=== PATIENT | female | born 1955 | race Caucasian/White ===

== ENCOUNTER 2017-09-03 02:56 | Emergency (ER) | payer MEDICARE, MEDICAID ==
[~2017-09-03] VITALS: Ht 167.6 cm; Wt 63.5 kg
[~2017-09-03 02:56] MED LIST: ATIVAN1 MG ORAL; BUTALB-ACETAMI1 EAC3 PO; TENORMIN25 MG ORAL
[2017-09-03 03:18] LABS: BILIRUBIN, URINE NEGATIVE (NEGATIVE); COLOR,URINE PALE YELLOW; GLUCOSE, URINE (UA) NEGATIVE (NEGATIVE); KETONES,URINE NEGATIVE (NEGATIVE); NITRITE,URINE NEGATIVE (NEGATIVE); PH,URINE 6 (4.5-8.0); PROTEIN,URINE NEGATIVE (NEGATIVE); UROBILINOGEN,URINE NORMAL MG/DL (0.0-1.0)
--- NOTE | 2017-09-03 03:23 | Emergency Room Report ---
History of Present Illness General Chief Complaint: Pelvic Pain Source: Patient, Medical Record Present Illness HPI 61-year-old female, history of ovarian cyst removal 15 years ago, as well as cervix surgery 15 years ago, presenting with abdominal pain for the last 5 days. Points to her bilateral lower abdomen for pain. States that it's constant. Has still been able to eat and drink. No nausea vomiting or diarrhea. Denies any dysuria or hematuria. States that she went to [facility] who performed a urine test which was negative and sent her home Allergies: Coded Allergies: NIACIN (Verified Allergy, Unknown, 09/03/17) Patient History Past Medical History: see triage record Past Surgical History: none Pertinent Family History: none Now: No Reviewed Nursing Documentation: PMH: Agreed; PSxH: Agreed Nursing Documentation-PMH Hx Hypertension: Yes Hx Pacemaker: No - THYROID NODULE Review of Systems All Other Systems: negative except mentioned in HPI Physical Exam Vital Signs Date Time Temp Pulse Resp B/P (MAP) Pulse Ox O2 Delivery O2 Flow Rate FiO2 09/03/17 03:08 98.2 92 14 117/77 96 Room Air 98.2 Sp02 EP Interpretation: reviewed, normal General Appearance: alert, GCS 15, non-toxic, mild distress Head: normocephalic, atraumatic Eyes: bilateral eye normal inspection, bilateral eye PERRL, bilateral eye EOMI ENT: normal ENT inspection, normal pharynx, normal voice, moist mucus membranes Neck: normal inspection, full range of motion, supple Respiratory: normal inspection, lungs clear, normal breath sounds, no respiratory distress, no retraction, no wheezing, speaking full sentences, chest symmetrical Cardiovascular #1: normal inspection, regular rate, rhythm, no edema, normal capillary refill Cardiovascular #2: 2+ radial (R), 2+ radial (L) Gastrointestinal: other - Bilateral lower abdominal mild tenderness, no guarding no rigidity no rebound Musculoskeletal: normal inspection, back normal, normal range of motion, non- tender Neurologic: normal inspection, alert, oriented x3, responsive, motor strength/ tone normal, sensory intact, normal gait, speech normal Psychiatric: normal inspection, judgement/insight normal, memory normal Skin: normal inspection, normal color, no rash, warm/dry, well hydrated, normal turgor Medical Decision Making Diagnostic Impression: Primary Impression: UTI (urinary tract infection) ER Course 61-year-old female with abdominal pain Differential Diagnosis: Gastritis, gastroenteritis, cholecystitis, appendicitis, diverticulitis, SBO, UTI/pyelo Plan: Basic labs, ua pain control, IVF CT abdopelvis ER course: Patient has remained stable during ED stay. Pain improved. Repeat abdominal exam is nontender. pt has UTI incidental finding on adrenal gland disucssed with pt to follow up with pcp Disposition: Patient is to be discharged to home with abx Patient is instructed to follow up with their primary care doctor within 5 days. Strict return precautions discussed with patient such as fever, chills, worsening/severe abdominal pain, nausea, vomiting, black or bloody stools, which may indicate severe illness. Patient verbalizes understanding and agrees with plan. Please note that this Emergency Department Report was dictated using [employer] medicine teacher technology software, occasionally this can lead to erroneous entry secondary to interpretation by the dictation equipment Laboratory Tests Test 09/03/17 03:00 09/03/17 03:51 Urine Color Pale yellow Urine Appearance Slightly cloudy Urine pH 6 (4.5-8.0) Urine Specific [place] 1.020 (1.005-1.035) Urine Protein Negative (NEGATIVE) Urine Glucose (UA) Negative (NEGATIVE) Urine Ketones Negative (NEGATIVE) Urine Occult Blood 3+ (NEGATIVE) H Urine Nitrite Negative (NEGATIVE) Urine Bilirubin Negative (NEGATIVE) Urine Urobilinogen Normal MG/DL (0.0-1.0) Urine Leukocyte Esterase 2+ (NEGATIVE) H Urine RBC 20-30 /HPF (0 - 2) H Urine WBC 30-40 /HPF (0 - 2) H Urine Squamous Epithelial Cells Many /LPF (NONE/OCC) H Urine Bacteria Many /HPF (NONE) H White Blood Count 8.8 K/UL (4.8-10.8) Red Blood Count 4.66 M/UL (4.20-5.40) Hemoglobin 14.8 G/DL (12.0-16.0) Hematocrit 42.4 % (37.0-47.0) Mean Corpuscular Volume 91 FL (80-99) Mean Corpuscular Hemoglobin 31.7 PG (27.0-31.0) H Mean Corpuscular Hemoglobin Concent 34.8 G/DL (32.0-36.0) Red Cell Distribution Width 11.0 % (11.6-14.8) L Platelet Count 177 K/UL (150-450) Mean Platelet Volume 9.4 FL (6.5-10.1) Neutrophils (%) (Auto) 72.3 % (45.0-75.0) Lymphocytes (%) (Auto) 14.9 % (20.0-45.0) L Monocytes (%) (Auto) 8.0 % (1.0-10.0) Eosinophils (%) (Auto) 3.2 % (0.0-3.0) H Basophils (%) (Auto) 1.7 % (0.0-2.0) Sodium Level 139 MMOL/L (136-145) Potassium Level 5.2 MMOL/L (3.5-5.1) H Chloride Level 107 MMOL/L (98-107) Carbon Dioxide Level 26 MMOL/L (21-32) Anion Gap 6 mmol/L (5-15) Blood Urea Nitrogen 23 mg/dL (7-18) H Creatinine 0.9 MG/DL (0.55-1.30) Estimate Glomerular Filtration Rate > 60 mL/min (>60) Glucose Level 108 MG/DL (74-106) H Calcium Level 8.8 MG/DL (8.5-10.1) Total Bilirubin 0.3 MG/DL (0.2-1.0) Aspartate Amino Transferase (AST) 34 U/L (15-37) Alanine Aminotransferase (ALT) 24 U/L (12-78) Alkaline Phosphatase 98 U/L (46-116) Total Protein 6.6 G/DL (6.4-8.2) Albumin 3.4 G/DL (3.4-5.0) Globulin 3.2 g/dL Albumin/Globulin Ratio 1.1 (1.0-2.7) Lipase 133 U/L (73-393) CT/MRI/US Diagnostic Results CT/MRI/US Diagnostic Results : Imaging Test Ordered: CT abdo pelvis Impression IMPRESSION: Fluid/gas present throughout nondistended small bowel loops without evidence of obstruction. Findings may be within the spectrum of normal or possibly reflective of mild enteritis in the appropriate clinical setting. Mild heterogeneity of renal parenchymal enhancement bilaterally likely related to phase of imaging. If there is concern for pyelonephritis, recommend correlation with urinalysis. 8 mm indeterminate left adrenal nodule, most commonly adenoma in patient without history of prior malignancy. Consider dedicated adrenal protocol CT or MRI for definitive characterization as clinically indicated. Additional findings as above. Last Vital Signs Date Time Temp Pulse Resp B/P (MAP) Pulse Ox O2 Delivery O2 Flow Rate FiO2 09/03/17 03:08 98.2 92 14 117/77 96 Room Air 98.2 Disposition: HOME, SELF-CARE Condition: Improved Scripts Cephalexin* (KEFLEX*) 500 Mg Capsule 500 MG ORAL Q6H, #28 CAP 0 Refills Prov: Luis De León M.D. 09/03/17 Referrals: NOT CHOSEN PIPER/,REFERRING (PCP) Luis De León M.D. Sep 03, 2017 03:23
[2017-09-03] MEDS ORDERED: Ketorolac 30mg Inj IV ONE (03:30)
[2017-09-03 03:36] LABS: APPEARANCE,URINE SLIGHTLY CLOUDY; LEUKOCYTE ESTERASE ,URINE 2+ (NEGATIVE)
[2017-09-03 04:01] LABS: BASOPHILS % (AUTO) 1.7 % (0.0-2.0); EOSINOPHILS % (AUTO) 3.2 % (0.0-3.0); HEMATOCRIT 42.4 % (37.0-47.0); HEMOGLOBIN 14.8 G/DL (12.0-16.0); LYMPHOCYTES % (AUTO) 14.9 % (20.0-45.0); MEAN CORPUSCULAR VOLUME 91 FL (80-99); NEUTROPHILS % (AUTO) 72.3 % (45.0-75.0); PLATELET COUNT 177 K/UL (150-450); RED BLOOD COUNT 4.66 M/UL (4.20-5.40); WHITE BLOOD COUNT 8.8 K/UL (4.8-10.8)
[2017-09-03 04:08] LABS: ANION GAP 6 mmol/L (5-15); BLOOD UREA NITROGEN 23 mg/dL (7-18); CALCIUM 8.8 MG/DL (8.5-10.1); CARBON DIOXIDE 26 MMOL/L (21-32); CHLORIDE 107 MMOL/L (98-107); CREATININE 0.9 MG/DL (0.55-1.30); POTASSIUM 5.2 MMOL/L (3.5-5.1); SODIUM 139 MMOL/L (136-145)
[2017-09-03 04:12] LABS: ALANINE AMINOTRANSFERASE 24 U/L (12-78); ALBUMIN 3.4 G/DL (3.4-5.0); ALBUMIN/GLOBULIN RATIO 1.1 (1.0-2.7); ALKALINE PHOSPHATASE 98 U/L (46-116); ASPARTATE AMINO TRANSFERASE 34 U/L (15-37); BILIRUBIN,TOTAL 0.3 MG/DL (0.2-1.0)
[2017-09-03] MEDS ORDERED: cefTRIAXone 1 GM in NS 55 ML IVPB ONE (04:30)
[2017-09-03] MEDS ORDERED: KEFLEX500 MG ORAL (04:43)
[2017-09-03] MEDS ORDERED: Phenazopyridine 200mg tab ORAL ONE (05:00)
[2017-09-03] MEDS ORDERED: Cephalexin 500mg cap ORAL ONE (05:00)
[2017-09-03 06:25] VITALS: BP 112/76
[2017-09-03] MEDS ORDERED: Piperacillin/Tazobactam 3.375 GM in NS 55 ML IVPB ONE (08:00)
--- NOTE | 2017-09-03 10:25 | Diagnostic Imaging Report ---
Indication: Abdominal pain Technique: CT of the abdomen and pelvis utilizing automated exposure control with intravenous contrast. Venous scanning performed. CT dose: Total DLP 685.85 mGycm; CTDI vol 13.01 mGy Comparison: None Findings: Dependent atelectasis noted in the lung bases. Heart size within normal limits. No pericardial effusion. No focal liver lesion appreciated on this single phase exam. Hepatic veins and portal veins appear patent. Gallbladder is contracted, limiting its evaluation but it is grossly unremarkable in appearance. Spleen and pancreas grossly unremarkable. The is a 8 mm indeterminate left adrenal nodule. Kidneys enhance symmetrically. There is mild heterogeneity of enhancement which is likely related to phase of imaging. There is no urinary tract stone or hydronephrosis bilaterally. Bladder and uterus grossly unremarkable. No free intraperitoneal air or fluid. No evidence of bowel obstruction. Appendix is not definitively visualized but there are no focal inflammatory changes in the right lower quadrant to suggest acute appendicitis. No appreciable focal bowel wall thickening is seen however evaluation limited without the use of oral contrast. Underdistention of the stomach limits evaluation for gastric wall thickening, which cannot entirely be excluded. Fluid/gas present throughout the nondistended small bowel loops could be within the spectrum of normal for represent mild enteritis in the appropriate clinical setting. A small fat-containing umbilical hernia. There is no pathologically enlarged lymphadenopathy. Abdominal aorta is normal in caliber. There are degenerative changes of the spine. No acute osseous abnormality seen. IMPRESSION: Fluid/gas present throughout nondistended small bowel loops without evidence of obstruction. Findings may be within the spectrum of normal or possibly reflective of mild enteritis in the appropriate clinical setting. Mild heterogeneity of renal parenchymal enhancement bilaterally likely related to phase of imaging. If there is concern for pyelonephritis, recommend correlation with urinalysis. 8 mm indeterminate left adrenal nodule, most commonly adenoma in patient without history of prior malignancy. Consider dedicated adrenal protocol CT or MRI for definitive characterization as clinically indicated. Additional findings as above. This corresponds with the statrad preliminary report.. The CT scanner at [facility] is accredited by the [employer] and the scans are performed using protocols designed to limit radiation exposure to as low as reasonably achievable to attain images of sufficient resolution adequate for diagnostic evaluation.
== END 2017-09-03 06:25 | disposition home or self-care (01) ==
LOC: EDBD 02:56 → EMR 03:08
DX: N39.0 Urinary tract infection, site not specified (principal); I10 Essential (primary) hypertension
CPT/HCPCS: 36415; 74177; 80053; 81003; 83690; 85025; 87086; 96374; 99284; J1885; Q9967

== ENCOUNTER 2017-09-24 11:37 | Inpatient (IN) | payer MEDICARE, MEDICAID ==
[~2017-09-24] VITALS: Ht 167.6 cm; Wt 68.0 kg
[~2017-09-24 11:37] MED LIST changes: +KEFLEX500 MG ORAL
[2017-09-24 11:40] VITALS: BP 163/96
[2017-09-24] MEDS ORDERED: HYDROmorphone 1mg/ml Carpuject IVP ONE (11:45)
--- NOTE | 2017-09-24 11:52 | Emergency Room Report ---
History of Present Illness General Chief Complaint: Back Pain-No Injury Source: Patient, EMS Present Illness HPI Patient presents with complaints of right-sided flank pain upper back pain started few hours ago She was here recently with UTI/pyelonephritis At that time CT imaging was negative [facility] Denies any vomiting denies any diarrhea denies any chest pain or shortness of breath pain is 10 out of 10 Flank region also complains of burning with urination Allergies: Coded Allergies: SULFA (SULFONAMIDE ANTIBIOTICS) (Verified Allergy, Intermediate, 09/24/17) NIACIN (Verified Allergy, Unknown, 09/24/17) Patient History Past Medical History: see triage record Pertinent Family History: none Reviewed Nursing Documentation: PMH: Agreed; PSxH: Agreed Nursing Documentation-PMH Past Medical History: No History, Except For Hx Cardiac Problems: Yes Hx Hypertension: Yes Hx Pacemaker: No - THYROID NODULE Hx Cancer: Yes Hx Gastrointestinal Problems: No Hx Neurological Problems: No Review of Systems All Other Systems: negative except mentioned in HPI Physical Exam Vital Signs Date Time Temp Pulse Resp B/P (MAP) Pulse Ox O2 Delivery O2 Flow Rate FiO2 09/24/17 11:30 98.2 88 16 163/96 100 Room Air 98.2 Sp02 EP Interpretation: reviewed, normal General Appearance: mild distress - Uncomfortable in pain Head: normocephalic, atraumatic Eyes: bilateral eye PERRL, bilateral eye EOMI ENT: normal pharynx Neck: full range of motion, supple Respiratory: lungs clear, normal breath sounds Cardiovascular #1: regular rate, rhythm Gastrointestinal: non tender Genitourinary: CVA tenderness (R) Musculoskeletal: normal inspection, back normal Neurologic: alert, oriented x3, responsive Skin: normal color, no rash Lymphatic: no adenopathy Medical Decision Making Diagnostic Impression: Primary Impression: Rhabdomyolysis Additional Impression: Pyelonephritis ER Course Multiple differentials considered Patient is complex requiring extensive blood work and IV hydration Patient has CT imaging from recent visit and this was not repeated Patient's total CK is elevated Urine sample appears to be clearing However potentially not fully treated with the antibiotics with the flank pain consideration for pyelonephritis is high And patient admitted for further care Labs Test 09/24/17 11:50 09/24/17 16:40 09/25/17 07:40 White Blood Count 8.7 K/UL (4.8-10.8) 8.1 K/UL (4.8-10.8) Red Blood Count 5.16 M/UL (4.20-5.40) 4.09 M/UL (4.20-5.40) Hemoglobin 16.3 G/DL (12.0-16.0) 13.5 G/DL (12.0-16.0) Hematocrit 48.0 % (37.0-47.0) 38.4 % (37.0-47.0) Mean Corpuscular Volume 93 FL (80-99) 94 FL (80-99) Mean Corpuscular Hemoglobin 31.6 PG (27.0-31.0) 33.0 PG (27.0-31.0) Mean Corpuscular Hemoglobin Concent 34.0 G/DL (32.0-36.0) 35.1 G/DL (32.0-36.0) Red Cell Distribution Width 11.5 % (11.6-14.8) 11.7 % (11.6-14.8) Platelet Count 226 K/UL (150-450) 156 K/UL (150-450) Mean Platelet Volume 7.8 FL (6.5-10.1) 8.5 FL (6.5-10.1) Neutrophils (%) (Auto) 57.9 % (45.0-75.0) 65.1 % (45.0-75.0) Lymphocytes (%) (Auto) 29.2 % (20.0-45.0) 22.8 % (20.0-45.0) Monocytes (%) (Auto) 7.5 % (1.0-10.0) 7.1 % (1.0-10.0) Eosinophils (%) (Auto) 4.0 % (0.0-3.0) 3.8 % (0.0-3.0) Basophils (%) (Auto) 1.5 % (0.0-2.0) 1.3 % (0.0-2.0) Urine Color Pale yellow Urine Appearance Clear Urine pH 5 (4.5-8.0) Urine Specific [place] 1.020 (1.005-1.035) Urine Protein Negative (NEGATIVE) Urine Glucose (UA) Negative (NEGATIVE) Urine Ketones Negative (NEGATIVE) Urine Occult Blood 2+ (NEGATIVE) Urine Nitrite Negative (NEGATIVE) Urine Bilirubin Negative (NEGATIVE) Urine Urobilinogen Normal MG/DL (0.0-1.0) Urine Leukocyte Esterase 1+ (NEGATIVE) Urine RBC 2-4 /HPF (0 - 2) Urine WBC 2-4 /HPF (0 - 2) Urine Squamous Epithelial Cells Few /LPF (NONE/OCC) Urine Bacteria Occasional /HPF (NONE) Urine Mucus Few /LPF (NONE/OCC) Sodium Level 142 MMOL/L (136-145) 141 MMOL/L (136-145) Potassium Level 3.7 MMOL/L (3.5-5.1) 4.1 MMOL/L (3.5-5.1) Chloride Level 106 MMOL/L (98-107) 107 MMOL/L (98-107) Carbon Dioxide Level 26 MMOL/L (21-32) 24 MMOL/L (21-32) Anion Gap 11 mmol/L (5-15) 10 mmol/L (5-15) Blood Urea Nitrogen 15 mg/dL (7-18) 11 mg/dL (7-18) Creatinine 1.0 MG/DL (0.55-1.30) 1.0 MG/DL (0.55-1.30) Estimat Glomerular Filtration Rate 56.8 mL/min (>60) 56.8 mL/min (>60) Glucose Level 88 MG/DL (74-106) 132 MG/DL (74-106) Lactic Acid Level 2.40 mmol/L (0.66-2.22) 0.80 mmol/L (0.66-2.22) Calcium Level 9.6 MG/DL (8.5-10.1) 8.8 MG/DL (8.5-10.1) Total Bilirubin 0.5 MG/DL (0.2-1.0) 0.5 MG/DL (0.2-1.0) Aspartate Amino Transf (AST/SGOT) 41 U/L (15-37) 37 U/L (15-37) Alanine Aminotransferase (ALT/SGPT) 25 U/L (12-78) 23 U/L (12-78) Alkaline Phosphatase 88 U/L (46-116) 66 U/L (46-116) Total Creatine Kinase 1770 U/L (26-308) 1159 U/L (26-308) Creatine Kinase MB 9.7 NG/ML (0.0-3.6) Creatine Kinase MB Relative Index 0.5 Total Protein 7.7 G/DL (6.4-8.2) 6.2 G/DL (6.4-8.2) Albumin 4.4 G/DL (3.4-5.0) 3.3 G/DL (3.4-5.0) Globulin 3.3 g/dL 2.9 g/dL Albumin/Globulin Ratio 1.3 (1.0-2.7) 1.1 (1.0-2.7) Lipase 135 U/L (73-393) Urine Opiates Screen Negative (NEGATIVE) Urine Barbiturates Screen Positive (NEGATIVE) Phencyclidine (PCP) Screen Negative (NEGATIVE) Urine Amphetamines Screen Negative (NEGATIVE) Urine Benzodiazepines Screen Negative (NEGATIVE) Urine Cocaine Screen Negative (NEGATIVE) Urine Marijuana (THC) Screen Negative (NEGATIVE) Thyroid Stimulating Hormone (TSH) 2.450 uiU/mL (0.358-3.740) Chest X-Ray Diagnostic Results Chest X-Ray Diagnostic Results : Chest X-Ray Ordered: Yes # of Views/Limited/Complete: 1 View Indication: Chest Pain EP Interpretation: Yes Interpretation: no consolidation, no effusion, no pneumothorax Impression: No acute disease Electronically Signed by: Richie Jain DO Last Vital Signs Date Time Temp Pulse Resp B/P (MAP) Pulse Ox O2 Delivery O2 Flow Rate FiO2 09/24/17 11:30 98.2 88 16 163/96 100 Room Air 98.2 Status: improved Disposition: ADMITTED INPATIENT Condition: Serious Richie Jain DO Sep 24, 2017 11:52
[2017-09-24 12:07] LABS: BASOPHILS % (AUTO) 1.5 % (0.0-2.0); HEMOGLOBIN 16.3 G/DL (12.0-16.0); LYMPHOCYTES % (AUTO) 29.2 % (20.0-45.0); MEAN CORPUSCULAR VOLUME 93 FL (80-99); MONOCYTES % (AUTO) 7.5 % (1.0-10.0); NEUTROPHILS % (AUTO) 57.9 % (45.0-75.0); PLATELET COUNT 226 K/UL (150-450); RED BLOOD COUNT 5.16 M/UL (4.20-5.40); RED CELL DISTRIBUTION WIDTH 11.5 % (11.6-14.8); WHITE BLOOD COUNT 8.7 K/UL (4.8-10.8)
[2017-09-24 12:08] LABS: APPEARANCE,URINE CLEAR; BILIRUBIN, URINE NEGATIVE (NEGATIVE); COLOR,URINE PALE YELLOW; GLUCOSE, URINE (UA) NEGATIVE (NEGATIVE); KETONES,URINE NEGATIVE (NEGATIVE); LEUKOCYTE ESTERASE ,URINE 1+ (NEGATIVE); NITRITE,URINE NEGATIVE (NEGATIVE); PH,URINE 5 (4.5-8.0); PROTEIN,URINE NEGATIVE (NEGATIVE); UROBILINOGEN,URINE NORMAL MG/DL (0.0-1.0)
[2017-09-24 12:29] LABS: ANION GAP 11 mmol/L (5-15); BLOOD UREA NITROGEN 15 mg/dL (7-18); CALCIUM 9.6 MG/DL (8.5-10.1); CARBON DIOXIDE 26 MMOL/L (21-32); CHLORIDE 106 MMOL/L (98-107); POTASSIUM 3.7 MMOL/L (3.5-5.1); SODIUM 142 MMOL/L (136-145)
[2017-09-24 12:38] LABS: ALANINE AMINOTRANSFERASE 25 U/L (12-78); ALBUMIN 4.4 G/DL (3.4-5.0); ALBUMIN/GLOBULIN RATIO 1.3 (1.0-2.7); ALKALINE PHOSPHATASE 88 U/L (46-116); ASPARTATE AMINO TRANSFERASE 41 U/L (15-37); BILIRUBIN,TOTAL 0.5 MG/DL (0.2-1.0); CKMB 9.7 NG/ML (0.0-3.6); CREATINE KINASE 1770 U/L (26-308)
--- NOTE | 2017-09-24 15:46 | Diagnostic Imaging Report ---
Indication: Chest pain Technique: One view of the chest Comparison: none Findings: Lungs and pleural spaces are clear. The heart size is normal. Impression: Negative
[2017-09-24 16:01] VITALS: BP 152/90
[2017-09-24] MEDS: LORazepam 1mg tab ORAL SCH (17:59)
[2017-09-24] MEDS: Piperacillin/Tazobactam 3.375 GM in D5W 110 ML IVPB SCH (18:42)
[2017-09-24 20:00] VITALS: BP 110/60
[2017-09-24] MEDS: NS w/KCl 20mEq 1,000 ML IV SCH (20:04)
[2017-09-24] MEDS: Heparin 5000 units/ml inj SUBQ SCH (20:40)
--- NOTE | 2017-09-24 23:15 | Consultation ---
DATE OF CONSULTATION: 09/24/2017 CARDIOLOGY CONSULTATION CONSULTING PHYSICIAN: Toy Lopez M.D. REQUESTING PHYSICIAN: Con Rios M.D. REASON FOR CONSULTATION: Lactic acidosis and rhabdomyolysis with uncontrolled blood pressure. HISTORY OF PRESENT ILLNESS: This is a 61-year-old white female, who was seen in the emergency room on 09/03/2017 with a urinary tract infection. At that time, CT scan imaging revealed no obstructive pathology or abscess. She was treated with oral antibiotics although states that she stopped it to two to three days early because she felt well. Over the past day or so, she has had recurring suprapubic pain progressing to include severe back pain on the right side to the point where she could not straighten herself. She noted muscle aches as well. PAST MEDICAL HISTORY: Thyroid nodule, hypertension, and hyperlipidemia. MEDICATIONS: Prior to admission, reviewed and reconciled. ALLERGIES: Niacin. FAMILY HISTORY: Noncontributory. SOCIAL HISTORY: She smoked half to 1 pack of cigarettes daily for most of her adult life. No alcohol or substance abuse. REVIEW OF SYSTEMS: A 10-point review of systems performed. All systems negative other than noted above. PHYSICAL EXAMINATION: VITAL SIGNS: Blood pressure 163/96, pulse 88, respirations 16, and afebrile. HEENT: Conjunctivae are pink. Sclerae are anicteric. Oropharynx clear. Mucous membranes moist. NECK: Supple. No adenopathy. No jugular venous distention. No thyroid masses. LUNGS: Clear. BREASTS: Without masses. CARDIAC: Regular rhythm and rate. Normal S1, S2 with a fourth heart sound. ABDOMEN: Soft. Mildly tender in the suprapubic region with right CVA tenderness. EXTREMITIES: Tender muscles to palpation, but no clubbing, cyanosis, or edema. SKIN: Without rash. DIAGNOSTIC DATA: EKG is pending. White count 8.7, hemoglobin 16.3, BUN 15, and creatinine 1. Lactic acid 2.4. Potassium 3.7. CK 1770 with CK-MB index negative. Albumin 4.4. IMPRESSION: 1. Severe sepsis. 2. Lactic acidosis. 3. Urinary tract infection and pyelonephritis on the right. 4. Rhabdomyolysis. 5. Hypertension, uncontrolled. 6. Hypovolemia and dehydration. 7. Secondary polycythemia. 8. Nicotine abuse. PLAN: 1. Hydration. 2. Panculture. 3. Broad-spectrum antibiotics. 4. Renal ultrasound. 5. Serial lactic acid levels. 6. Pain control. 7. If continued blood pressure elevation despite pain control, advancement of therapy will follow. In the meantime, p.r.n. antihypertensives have been ordered. Toy Lopez M.D. DR: DAX JOB#: [id number] CC:
[2017-09-25] VITALS: BP 100/64
[2017-09-25] MEDS: Piperacillin/Tazobactam 3.375 GM in D5W 110 ML IVPB SCH ×3 (02:18→17:43)
[2017-09-25 04:00] VITALS: BP 106/66
[2017-09-25] MEDS: NS w/KCl 20mEq 1,000 ML IV SCH ×2 (05:58→16:16)
[2017-09-25 08:00] VITALS: BP 103/62
[2017-09-25] MEDS ORDERED: Gastrograffin 30ml ORAL PRN (08:45)
[2017-09-25] MEDS ORDERED: Gastrograffin 30ml RECTAL PRN (08:45)
[2017-09-25] MEDS: Heparin 5000 units/ml inj SUBQ SCH ×2 (09:00→20:42)
[2017-09-25] MEDS ORDERED: Atenolol 25mg tab ORAL SCH (09:00)
[2017-09-25 09:02] LABS: BASOPHILS % (AUTO) 1.3 % (0.0-2.0); EOSINOPHILS % (AUTO) 3.8 % (0.0-3.0); HEMATOCRIT 38.4 % (37.0-47.0); HEMOGLOBIN 13.5 G/DL (12.0-16.0); LYMPHOCYTES % (AUTO) 22.8 % (20.0-45.0); MEAN CORPUSCULAR VOLUME 94 FL (80-99); MONOCYTES % (AUTO) 7.1 % (1.0-10.0); NEUTROPHILS % (AUTO) 65.1 % (45.0-75.0); PLATELET COUNT 156 K/UL (150-450); RED BLOOD COUNT 4.09 M/UL (4.20-5.40); RED CELL DISTRIBUTION WIDTH 11.7 % (11.6-14.8); WHITE BLOOD COUNT 8.1 K/UL (4.8-10.8)
[2017-09-25 09:21] LABS: ALANINE AMINOTRANSFERASE 23 U/L (12-78); ALBUMIN 3.3 G/DL (3.4-5.0); ALBUMIN/GLOBULIN RATIO 1.1 (1.0-2.7); ALKALINE PHOSPHATASE 66 U/L (46-116); ANION GAP 10 mmol/L (5-15); ASPARTATE AMINO TRANSFERASE 37 U/L (15-37); BILIRUBIN,TOTAL 0.5 MG/DL (0.2-1.0); BLOOD UREA NITROGEN 11 mg/dL (7-18); CALCIUM 8.8 MG/DL (8.5-10.1); CARBON DIOXIDE 24 MMOL/L (21-32); CHLORIDE 107 MMOL/L (98-107); CREATINE KINASE 1159 U/L (26-308); POTASSIUM 4.1 MMOL/L (3.5-5.1); SODIUM 141 MMOL/L (136-145)
[2017-09-25] MEDS: LORazepam 1mg tab ORAL SCH ×3 (09:59→17:42)
--- NOTE | 2017-09-25 11:58 | Diagnostic Imaging Report ---
Indication: Right-sided flank pain and upper back pain starting a few hours ago Technique: Spiral acquisitions obtained through the abdomen and pelvis. No oral or IV contrast utilized, per urinary stone protocol. Multiplanar reconstructions were generated. Total dose length product 727.38 mGycm. CTDIvol(s) 14.56 mGy. Dose reduction achieved using automated exposure control Comparison: 09/03/2017 contrast study Findings: There is a 4 mm calculus projected at the level of the right ureteral orifice. There is very mild right hydroureter, minimal if any hydronephrosis. No perinephric fat stranding is demonstrated. A nonobstructive calculus is seen in the left upper pole, measuring 3 mm. No left ureteral calculi, left hydronephrosis or hydroureter. The bladder is unremarkable. No focal renal abnormality, although evaluation for such is limited in the absence of IV contrast administration. The appendix is not definitely identified, but no findings to suggest acute appendicitis are evident. Moderate amount of stool is seen throughout the colon. No small bowel distention. No free or loculated intraperitoneal air or fluid is evident. The distal esophagus and stomach are unremarkable. A tiny mural lipoma is again demonstrated in the duodenum. Lack of IV contrast limits assessment of the other solid organs. The liver, gallbladder, bile ducts, pancreas, spleen are unremarkable. 8 mm left adrenal nodule is again demonstrated. The right adrenal is unremarkable. No retroperitoneal or mesenteric mass or adenopathy. No pelvic mass or adenopathy. The included lung bases demonstrate atelectatic changes, particularly on the left. These were not evident previously. The bones demonstrate mild degenerative proliferative changes of the lumbar spine Impression: Positive for 4 mm right ureterovesical junction calculus, at the level of the right ureteral orifice Nonobstructive left upper pole renal calculus 8 mm left adrenal nodule again demonstrated. Consider adrenal protocol MRI for better characterization Incidental findings as noted, including mild degenerative spondylosis, basilar pulmonary parenchymal atelectatic changes, tiny duodenal mural lipoma Dr. Lopez notified at the time of interpretation The CT scanner at [facility] is accredited by the [employer] and the scans are performed using protocols designed to limit radiation exposure to as low as reasonably achievable to attain images of sufficient resolution adequate for diagnostic evaluation.
[2017-09-25 12:00] VITALS: BP 113/73
--- NOTE | 2017-09-25 14:15 | History and Physical Report ---
DATE OF ADMISSION: 09/24/2017 CHIEF COMPLAINT: Pyelonephritis. HISTORY OF PRESENT ILLNESS: The patient is a pleasant 61-year-old female. She has a history of recurrent urinary tract infection. She was previously seen here for UTI. She completed all of her antibiotics except for her last two pills. Several days prior to admission, she has developed again lower abdominal pain, dysuria with frequent urination. On the day of presented here to the emergency room had severe right-sided flank pain and presented to the emergency room. On evaluation here, the patient was afebrile. Her white count was normal, but she had an elevated lactic acid level. She also had an elevated CK level. UA showed 2 to 4 wbc's. Her chest x-ray was clear. The patient has been pancultured and started on antibiotics, hydration, is now admitted for further evaluation and care. PAST MEDICAL HISTORY: Significant for history of recurrent urinary tract infections and hypertension. PAST SURGICAL HISTORY: Includes appendectomy. CURRENT MEDICATIONS: Reconciled and reviewed. ALLERGIES: Include niacin and sulfa. FAMILY HISTORY: Noncontributory. SOCIAL HISTORY: The patient is a smoker. No alcohol or drugs. REVIEW OF SYSTEMS: GENERAL: Positive fevers and chills, but no night sweats. HEENT: No headaches or visual changes. CARDIOPULMONARY: No chest pain or shortness of breath. GASTROINTESTINAL: Positive flank pain on the right. GENITOURINARY: urgency or frequency. MUSCULOSKELETAL: No joint pain or swelling. NEUROLOGIC: No evidence of seizures. PHYSICAL EXAMINATION: VITAL SIGNS: Temperature 97.1 degrees, pulse 70, respirations 20, and blood pressure 106/66. GENERAL: The patient is a well-developed female, in no apparent distress. HEART: Regular rate and rhythm. LUNGS: Clear. ABDOMEN: Soft, nontender, nondistended. EXTREMITIES: Without clubbing or cyanosis. There is mild right-sided flank pain. LABORATORY DATA: Lactic acid was 2.4. Sodium was 142, potassium 3.7, creatinine 1. CK was 1700. ASSESSMENT: This is a pleasant female admitted with complaints of right-sided flank pain and possible UTI. 1. Flank pain. 2. Possible sepsis. 3. UTI. 4. Lactic acidosis. 5. Hypertension. PLAN: 1. IV hydration. 2. Monitor CK level. 3. CT scan of the abdomen. 4. IV fluids and pain control. 5. Followup cultures. Con Rios M.D. DR: KAREEN JOB#: [id number] CC:
[2017-09-25 16:00] VITALS: BP 115/65
--- NOTE | 2017-09-25 17:36 | Diagnostic Imaging Report ---
Indication: Severe right flank pain Technique: Grayscale and duplex images of the kidneys, retroperitoneum, and bladder were obtained. Comparison: CT scan of earlier the same day Findings: Right kidney measures 10.1 cm in length. Left kidney measures 9.5 cm in length. Both kidneys demonstrate normal echogenicity. There is mild right hydronephrosis. No focal abnormality. Normal inferior vena cava. Bladder is demonstrates postvoid bladder volume of 21 mL, otherwise unremarkable. Bilateral ureteral jets are demonstrated. Impression: Mild right hydronephrosis. This is also demonstrated on recent CT scan, demonstrated to be due to distal ureteral calculus 21 mL postvoid bladder residual.
[2017-09-25 20:00] VITALS: BP 98/62
[2017-09-25] MEDS: Tamsulosin 0.4mg cap ORAL SCH (20:39)
--- NOTE | 2017-09-25 21:15 | Consultation ---
DATE OF CONSULTATION: 09/25/2017 CONSULTING PHYSICIAN: Arnulfo De Santiago M.D. REFERRING PHYSICIAN: Toy Lopez M.D. REASON FOR CONSULTATION: Evaluation of ureteral calculus. HISTORY OF PRESENT ILLNESS: This is a 61-year-old female. She was admitted to the hospital because of right-sided flank pain. According to the patient, she has had intermittent right-sided pain for about one to two months, but it appeared to exacerbate and that is why she came to the emergency room. CT scan showed a 4 mm right distal ureteral stone at the ureterovesical junction and Urology evaluation was requested. At this, she is fairly comfortable. She states that the pain comes and goes. PAST MEDICAL HISTORY: Significant for history of above, also UTI and hypertension. She has posttraumatic stress disorder. PAST SURGICAL HISTORY: Appendectomy. MEDICATIONS: Current medications here in the hospital, the patient is on Tenormin, heparin, nicotine, Ativan, Dilaudid, and Zofran. ALLERGIES: Niacin and sulfa. SOCIAL HISTORY: The patient does have a history of smoking. FAMILY HISTORY: Noncontributory. REVIEW OF SYSTEMS: As above. PHYSICAL EXAMINATION: GENERAL: Well-developed and well-nourished female, in no acute distress. VITAL SIGNS: Temperature is 98.4 degrees, blood pressure is 115/65, pulse 67, and respirations 17. HEENT: Normocephalic. NECK: Supple. ABDOMEN: Soft. No CVA tenderness. EXTREMITIES: No clubbing or cyanosis. LABORATORY AND DIAGNOSTIC DATA: White count is 8.1, hemoglobin 13.5, and platelets of 156. BUN 11, creatinine 1.0, and potassium 4.1. UA showed 2-4 rbc's and 1+ leukocyte esterase. There are occasional bacteria. The urine culture, which was from earlier in the month showed 80,000 to 90,000 mixed Gram-positive organisms. Diagnostic imaging studies, the patient had a CT scan of the abdomen and pelvis. There was mention of a 4 mm right ureterovesical junction calculus. There was mild hydroureter, minimal hydronephrosis. There was also a nonobstructive 3 mm left upper pole renal calculus and an 8 mm left adrenal nodule. IMPRESSION: 1. Nephrolithiasis with small obstructive stone of the right UVJ. 2. Minimal hydronephrosis. 3. Urinary frequency by history. 4. Microhematuria. 5. Colic. 6. Mild pyuria. 7. Adrenal nodule, possibly small adenoma. PLAN AND DISCUSSION: Again, the patient does have a right ureteral calculus. It is 4 mm and is distal at the UVJ and at this time, I did speak with the patient extensively about possible management options including trial of passage versus ureteroscopy and extraction of the stone. Pros and cons of each were discussed and at this time, we will proceed with conservative management trial of passage. I will add Flomax 0.4 mg nightly as well as straining of urine and hopefully she will pass the stone. If she is not able to pass the stone, then at some point in the future she may need to have endoscopic extraction and this was explained to her in detail. She is to be monitored clinically. She is currently on Zosyn. Any further recommendation will be forthcoming. Thank you, Dr. Lopez, for asking me to participate in this consultation. Arnulfo De Santiago M.D. DR: ROMARIO JOB#: [id number] CC:
[2017-09-26] VITALS: BP 102/67
[2017-09-26] MEDS: NS w/KCl 20mEq 1,000 ML IV SCH ×3 (02:00→22:00)
[2017-09-26] MEDS: Piperacillin/Tazobactam 3.375 GM in D5W 110 ML IVPB SCH ×3 (03:13→18:06)
[2017-09-26 04:00] VITALS: BP 108/59
--- NOTE | 2017-09-26 04:00 | Progress Note ---
DATE: 09/25/2017 CARDIOLOGY PROGRESS NOTE SUBJECTIVE: The patient's pain is slightly improved, but not resolved. Imaging study was reviewed and notable for a right ureteral stone. PHYSICAL EXAMINATION: VITAL SIGNS: Blood pressure 106/66 to 98/62, pulse 73, respirations 18, and afebrile. LUNGS: Clear. CARDIAC: Regular. ABDOMEN: Soft. Mild right CVA tenderness. EXTREMITIES: No edema. LABORATORY AND DIAGNOSTIC DATA: Lactic acid now normal. CK 1159. Albumin 3.3. BUN 11, creatinine 1, and white count is 8.1. IMPRESSION: 1. Nephrolithiasis. 2. Urinary tract infection. 3. History of hypertension, now with low range of blood pressure. 4. Lactic acidosis, resolved. PLAN: 1. Decrease IV fluids. 2. Hold beta-renee for low-range blood pressure. 3. Urology consultation. 4. Strain urine. Toy Lopez M.D. DR: KAYLA JOB#: [id number] CC:
[2017-09-26 08:20] VITALS: BP 95/57
--- NOTE | 2017-09-26 08:51 | Urology Progress Note ---
Assessment/Plan Assessment/Plan 1. Nephrolithiasis with small obstructive stone of the right UVJ. 2. Minimal hydronephrosis. 3. Urinary frequency by history. 4. Microhematuria. 5. Colic. 6. Mild pyuria. 7. Adrenal nodule, possibly small adenoma. monitor clinically cont with trial of passage flomax and strain urine d/w Dr. Lopez Subjective Allergies: Coded Allergies: SULFA (SULFONAMIDE ANTIBIOTICS) (Verified Allergy, Intermediate, 09/24/17) NIACIN (Verified Allergy, Unknown, 09/24/17) Subjective feels fair, relatively comfortable, no stone in strainer Objective Last 24 Hour Vital Signs Date Time Temp Pulse Resp B/P (MAP) Pulse Ox O2 Delivery O2 Flow Rate FiO2 09/26/17 04:00 97.5 64 17 108/59 99 Room Air 97.5 09/26/17 02:01 98.2 09/26/17 01:21 98.2 09/26/17 00:00 98.2 71 19 102/67 98 Room Air 98.2 09/25/17 20:42 98.1 09/25/17 20:00 98.1 73 18 98/62 99 Room Air 98.1 09/25/17 16:00 98.4 67 17 115/65 100 Room Air 98.4 09/25/17 12:00 98.4 72 19 113/73 98 Room Air 98.4 09/25/17 11:28 97.3 09/25/17 09:00 65 103/62 Intake and Output 09/25/17 09/26/17 19:00 07:00 Intake Total 892.5 ml 692.5 ml Balance 892.5 ml 692.5 ml IV Total 892.5 ml 692.5 ml # Voids 5 Current Medications Medications (Trade) Dose Ordered Sig/Hany Route PRN Reason Start Time Stop Time Status Last Admin Dose Admin Acetaminophen (Tylenol) 650 mg Q4H PRN ORAL Mild Pain/Temp > 100.5 09/24/17 17:27 10/24/17 17:26 Atenolol (Tenormin) 25 mg DAILY ORAL 09/26/17 09:00 10/26/17 08:59 Heparin Sodium (Porcine) (Heparin 5000 units/ml) 5,000 units EVERY 12 HOURS SUBQ 09/24/17 21:00 10/24/17 20:59 Hydromorphone HCl (Dilaudid) 1 mg TID PRN IVP Severe Pain (Pain Scale 7-10) 09/24/17 17:27 10/01/17 17:26 09/26/17 01:21 Lorazepam (Ativan) 1 mg THREE TIMES A DAY ORAL 09/24/17 18:00 10/01/17 17:59 09/25/17 17:42 Nicotine (Nicoderm) 1 patch Q24H TDERMAL 09/24/17 20:00 10/24/17 19:59 09/25/17 20:40 Ondansetron HCl (Zofran) 4 mg Q6H PRN IVP Nausea & Vomiting 09/24/17 17:27 10/24/17 17:26 09/25/17 02:22 Piperacillin Sod/ Tazobactam Sod 3.375 gm/Dextrose 110 ml @ 27.5 mls/hr Q8H IVPB 09/24/17 18:30 10/01/17 18:29 09/26/17 03:13 Sodium Chloride 1,000 ml @ 100 mls/hr Q10H IV 09/24/17 20:00 10/24/17 19:59 09/25/17 16:16 Tamsulosin HCl (Flomax) 0.4 mg BEDTIME ORAL 09/25/17 21:00 10/25/17 20:59 09/25/17 20:39 Height (Feet): 5 Height (Inches): 6.00 Weight (Pounds): 150 Objective exam stable LA MORRISON Sep 26, 2017 08:51
[2017-09-26] MEDS: Heparin 5000 units/ml inj SUBQ SCH ×2 (09:00→20:59)
[2017-09-26] MEDS: LORazepam 1mg tab ORAL SCH ×3 (09:02→18:06)
[2017-09-26] MEDS: Atenolol 25mg tab ORAL SCH (09:02)
[2017-09-26 11:52] VITALS: BP 108/61
--- NOTE | 2017-09-26 12:29 | General Progress Note ---
Assessment/Plan Problem List: (1) Kidney stone on right side ICD Codes: N20.0 - Calculus of kidney SNOMED: 77009517 (2) anxiety (3) dizziness (4) Headache ICD Codes: R51 - Headache SNOMED: 84660577 (5) UTI (urinary tract infection) ICD Codes: N39.0 - Urinary tract infection, site not specified SNOMED: 60722971 (6) Back pain ICD Codes: M54.9 - Dorsalgia, unspecified SNOMED: 345944084 Status: stable, progressing Assessment/Plan ivf pain rx monitor labs nsaids Subjective ROS Limited/Unobtainable: No Constitutional: Reports: malaise, weakness HEENT: Reports: no symptoms Cardiovascular: Reports: no symptoms Respiratory: Reports: no symptoms Gastrointestinal/Abdominal: Reports: no symptoms Genitourinary: Reports: no symptoms Neurologic/Psychiatric: Reports: no symptoms Endocrine: Reports: no symptoms Hematologic/Lymphatic: Reports: no symptoms Allergies: Coded Allergies: SULFA (SULFONAMIDE ANTIBIOTICS) (Verified Allergy, Intermediate, 09/24/17) NIACIN (Verified Allergy, Unknown, 09/24/17) All Systems: reviewed and negative except above Subjective still with back pain. CT + right kidney stone at upj Objective Last 24 Hour Vital Signs Date Time Temp Pulse Resp B/P (MAP) Pulse Ox O2 Delivery O2 Flow Rate FiO2 09/26/17 11:52 98.0 89 17 108/61 98 Room Air 98.0 09/26/17 09:02 64 108/59 09/26/17 08:20 98.4 68 17 95/57 100 Room Air 98.4 09/26/17 04:00 97.5 64 17 108/59 99 Room Air 97.5 09/26/17 02:01 98.2 09/26/17 01:21 98.2 09/26/17 00:00 98.2 71 19 102/67 98 Room Air 98.2 09/25/17 20:42 98.1 09/25/17 20:00 98.1 73 18 98/62 99 Room Air 98.1 09/25/17 16:00 98.4 67 17 115/65 100 Room Air 98.4 Intake and Output 09/25/17 09/26/17 19:00 07:00 Intake Total 892.5 ml 692.5 ml Balance 892.5 ml 692.5 ml IV Total 892.5 ml 692.5 ml # Voids 5 Height (Feet): 5 Height (Inches): 6.00 Weight (Pounds): 150 General Appearance: WD/WN, alert Neck: supple Cardiovascular: normal rate, regular rhythm Respiratory/Chest: chest wall non-tender, lungs clear, normal breath sounds Abdomen: normal bowel sounds, non tender, soft, no organomegaly Edema: no edema noted Arm (L), no edema noted Arm (R), no edema noted Leg (L), no edema noted Leg (R), no edema noted Pedal (L), no edema noted Pedal (R), no edema noted Generalized YASEMIN HUGGINS Sep 26, 2017 12:28
[2017-09-26 15:51] VITALS: BP 112/62
[2017-09-26 20:00] VITALS: BP 90/59
[2017-09-26] MEDS: Tamsulosin 0.4mg cap ORAL SCH (20:54)
[2017-09-27] VITALS: BP 105/52
--- NOTE | 2017-09-27 02:15 | Progress Note ---
DATE: 09/26/2017 SUBJECTIVE: The patient continues to have right back pain. She has not passed out kidney stone. OBJECTIVE: VITAL SIGNS: Remain with low range blood pressure 95/57, heart rate 68, and respiratory rate 17. LUNGS: Clear. CARDIAC: Regular. Normal S1, S2. ABDOMEN: Soft. Positive right CVA tenderness. No edema. IMPRESSION: 1. Biliary colic. 2. Rhabdomyolysis. 3. Mild protein-calorie malnutrition. 4. Lactic acidosis, resolved. 5. Hypotension, likely multifactorial. PLAN: 1. Volume support. 2. Recheck laboratory studies including uric acid and CK levels. 3. Hold parameter and beta-renee. 4. Urology followup regarding cystoscopy and stone removal. Toy Lopez M.D. DR: Mirza JOB#: [id number] CC:
[2017-09-27] MEDS: Piperacillin/Tazobactam 3.375 GM in D5W 110 ML IVPB SCH ×3 (02:17→17:14)
[2017-09-27 04:00] VITALS: BP 116/56
[2017-09-27] MEDS: NS w/KCl 20mEq 1,000 ML IV SCH ×2 (05:30→18:00)
[2017-09-27 07:52] VITALS: BP 104/65
[2017-09-27 08:12] LABS: EOSINOPHILS % (AUTO) 6.1 % (0.0-3.0); HEMATOCRIT 43.8 % (37.0-47.0); HEMOGLOBIN 15.2 G/DL (12.0-16.0); LYMPHOCYTES % (AUTO) 25.7 % (20.0-45.0); MEAN CORPUSCULAR VOLUME 94 FL (80-99); MONOCYTES % (AUTO) 8.4 % (1.0-10.0); NEUTROPHILS % (AUTO) 58.8 % (45.0-75.0); PLATELET COUNT 188 K/UL (150-450); RED BLOOD COUNT 4.68 M/UL (4.20-5.40); RED CELL DISTRIBUTION WIDTH 11.7 % (11.6-14.8); WHITE BLOOD COUNT 6.1 K/UL (4.8-10.8)
[2017-09-27 08:30] LABS: ALANINE AMINOTRANSFERASE 22 U/L (12-78); ALBUMIN 3.5 G/DL (3.4-5.0); ALBUMIN/GLOBULIN RATIO 1.1 (1.0-2.7); ALKALINE PHOSPHATASE 77 U/L (46-116); ANION GAP 9 mmol/L (5-15); ASPARTATE AMINO TRANSFERASE 26 U/L (15-37); BILIRUBIN,TOTAL 0.3 MG/DL (0.2-1.0); BLOOD UREA NITROGEN 9 mg/dL (7-18); CALCIUM 9.2 MG/DL (8.5-10.1); CARBON DIOXIDE 25 MMOL/L (21-32); CHLORIDE 106 MMOL/L (98-107); CREATINE KINASE 267 U/L (26-308); POTASSIUM 4.1 MMOL/L (3.5-5.1); SODIUM 140 MMOL/L (136-145)
[2017-09-27] MEDS: LORazepam 1mg tab ORAL SCH ×3 (08:35→17:14)
[2017-09-27] MEDS: Atenolol 25mg tab ORAL SCH (08:35)
[2017-09-27] MEDS: Heparin 5000 units/ml inj SUBQ SCH ×2 (08:36→21:16)
--- NOTE | 2017-09-27 09:13 | Urology Progress Note ---
Assessment/Plan Assessment/Plan 1. Nephrolithiasis with small obstructive stone of the right UVJ. 2. Minimal hydronephrosis. 3. Urinary frequency by history. 4. Microhematuria. 5. Colic. 6. Mild pyuria. 7. Adrenal nodule, possibly small adenoma. monitor clinically pt wants to cont with trial of passage flomax and strain urine Subjective Allergies: Coded Allergies: SULFA (SULFONAMIDE ANTIBIOTICS) (Verified Allergy, Intermediate, 09/24/17) NIACIN (Verified Allergy, Unknown, 09/24/17) Subjective feels fair, relatively comfortable, essentially same pain she's had for two months, no stone seen in strainer Objective Last 24 Hour Vital Signs Date Time Temp Pulse Resp B/P (MAP) Pulse Ox O2 Delivery O2 Flow Rate FiO2 09/27/17 08:35 70 104/65 09/27/17 07:52 97.0 70 18 104/65 93 Room Air 97.0 09/27/17 04:00 98.1 69 19 116/56 93 Room Air 98.1 09/27/17 00:00 97.1 78 19 105/52 100 Room Air 97.1 09/26/17 20:00 98.0 66 19 90/59 97 Room Air 98.0 09/26/17 15:51 98.3 66 18 112/62 98 Room Air 98.3 09/26/17 11:52 98.0 89 17 108/61 98 Room Air 98.0 Intake and Output 09/26/17 09/27/17 19:00 07:00 Intake Total 1627.5 ml 732.5 ml Balance 1627.5 ml 732.5 ml Intake Oral 250 ml IV Total 127.5 ml 482.5 ml Other 1500 ml # Voids 6 4 Microbiology Date/Time Source Procedure Growth Status 09/24/17 12:05 Blood Blood Culture - Preliminary NO GROWTH AFTER 48 HOURS Resulted Current Medications Medications (Trade) Dose Ordered Sig/Hany Route PRN Reason Start Time Stop Time Status Last Admin Dose Admin Acetaminophen (Tylenol) 650 mg Q4H PRN ORAL Mild Pain/Temp > 100.5 09/24/17 17:27 10/24/17 17:26 Atenolol (Tenormin) 25 mg DAILY ORAL 09/26/17 09:00 10/26/17 08:59 09/26/17 09:02 Heparin Sodium (Porcine) (Heparin 5000 units/ml) 5,000 units EVERY 12 HOURS SUBQ 09/24/17 21:00 10/24/17 20:59 Hydromorphone HCl (Dilaudid) 1 mg TID PRN IVP Severe Pain (Pain Scale 7-10) 09/24/17 17:27 10/01/17 17:26 09/27/17 07:10 Ibuprofen (Motrin) 600 mg THREE TIMES A DAY ORAL 09/26/17 13:00 10/26/17 12:59 Lorazepam (Ativan) 1 mg THREE TIMES A DAY ORAL 09/24/17 18:00 10/01/17 17:59 09/27/17 08:35 Nicotine (Nicoderm) 1 patch Q24H TDERMAL 09/24/17 20:00 10/24/17 19:59 09/26/17 20:57 Ondansetron HCl (Zofran) 4 mg Q6H PRN IVP Nausea & Vomiting 09/24/17 17:27 10/24/17 17:26 09/26/17 09:02 Piperacillin Sod/ Tazobactam Sod 3.375 gm/Dextrose 110 ml @ 27.5 mls/hr Q8H IVPB 09/24/17 18:30 10/01/17 18:29 09/27/17 02:17 Sodium Chloride 1,000 ml @ 100 mls/hr Q10H IV 09/24/17 20:00 10/24/17 19:59 09/27/17 05:30 Tamsulosin HCl (Flomax) 0.4 mg BEDTIME ORAL 09/25/17 21:00 10/25/17 20:59 09/26/17 20:54 Laboratory Tests 09/27/17 06:30: White Blood Count 6.1, Red Blood Count 4.68, Hemoglobin 15.2, Hematocrit 43.8, Mean Corpuscular Volume 94, Mean Corpuscular Hemoglobin 32.6H, Mean Corpuscular Hemoglobin Concent 34.8, Red Cell Distribution Width 11.7, Platelet Count 188, Mean Platelet Volume 8.7, Neutrophils (%) (Auto) 58.8, Lymphocytes (%) (Auto) 25.7, Monocytes (%) (Auto) 8.4, Eosinophils (%) (Auto) 6.1H, Basophils (%) (Auto ) 1.0, Sodium Level 140, Potassium Level 4.1, Chloride Level 106, Carbon Dioxide Level 25, Anion Gap 9, Blood Urea Nitrogen 9, Creatinine 1.0, Estimat Glomerular Filtration Rate 56.8, Glucose Level 94, Uric Acid 2.5L, Calcium Level 9.2, Total Bilirubin 0.3, Aspartate Amino Transf (AST/SGOT) 26, Alanine Aminotransferase (ALT/SGPT) 22, Alkaline Phosphatase 77, Total Creatine Kinase 267, Total Protein 6.8, Albumin 3.5, Globulin 3.3, Albumin/Globulin Ratio 1.1 Height (Feet): 5 Height (Inches): 6.00 Weight (Pounds): 150 Objective exam stable LA MORRISON Sep 27, 2017 09:13
--- NOTE | 2017-09-27 11:21 | General Progress Note ---
Assessment/Plan Problem List: (1) Kidney stone on right side ICD Codes: N20.0 - Calculus of kidney SNOMED: 17709633 (2) anxiety (3) dizziness (4) Headache ICD Codes: R51 - Headache SNOMED: 54143846 (5) UTI (urinary tract infection) ICD Codes: N39.0 - Urinary tract infection, site not specified SNOMED: 02900702 (6) Back pain ICD Codes: M54.9 - Dorsalgia, unspecified SNOMED: 259293010 Status: stable, not improved Assessment/Plan ivf pain rx monitor labs nsaids follow up Subjective Allergies: Coded Allergies: SULFA (SULFONAMIDE ANTIBIOTICS) (Verified Allergy, Intermediate, 09/24/17) NIACIN (Verified Allergy, Unknown, 09/24/17) Subjective still with back pain. CT + right kidney stone at j. no nausea or vomiting. Objective Last 24 Hour Vital Signs Date Time Temp Pulse Resp B/P (MAP) Pulse Ox O2 Delivery O2 Flow Rate FiO2 09/27/17 08:35 70 104/65 09/27/17 07:52 97.0 70 18 104/65 93 Room Air 97.0 09/27/17 04:00 98.1 69 19 116/56 93 Room Air 98.1 09/27/17 00:00 97.1 78 19 105/52 100 Room Air 97.1 09/26/17 20:00 98.0 66 19 90/59 97 Room Air 98.0 09/26/17 15:51 98.3 66 18 112/62 98 Room Air 98.3 09/26/17 11:52 98.0 89 17 108/61 98 Room Air 98.0 Intake and Output 09/26/17 09/27/17 19:00 07:00 Intake Total 1627.5 ml 732.5 ml Balance 1627.5 ml 732.5 ml Intake Oral 250 ml IV Total 127.5 ml 482.5 ml Other 1500 ml # Voids 6 4 Laboratory Tests 09/27/17 06:30: White Blood Count 6.1, Red Blood Count 4.68, Hemoglobin 15.2, Hematocrit 43.8, Mean Corpuscular Volume 94, Mean Corpuscular Hemoglobin 32.6H, Mean Corpuscular Hemoglobin Concent 34.8, Red Cell Distribution Width 11.7, Platelet Count 188, Mean Platelet Volume 8.7, Neutrophils (%) (Auto) 58.8, Lymphocytes (%) (Auto) 25.7, Monocytes (%) (Auto) 8.4, Eosinophils (%) (Auto) 6.1H, Basophils (%) (Auto ) 1.0, Sodium Level 140, Potassium Level 4.1, Chloride Level 106, Carbon Dioxide Level 25, Anion Gap 9, Blood Urea Nitrogen 9, Creatinine 1.0, Estimat Glomerular Filtration Rate 56.8, Glucose Level 94, Uric Acid 2.5L, Calcium Level 9.2, Total Bilirubin 0.3, Aspartate Amino Transf (AST/SGOT) 26, Alanine Aminotransferase (ALT/SGPT) 22, Alkaline Phosphatase 77, Total Creatine Kinase 267, Total Protein 6.8, Albumin 3.5, Globulin 3.3, Albumin/Globulin Ratio 1.1 Height (Feet): 5 Height (Inches): 6.00 Weight (Pounds): 150 Objective General Appearance: WD/WN, alert Neck: supple Cardiovascular: normal rate, regular rhythm Respiratory/Chest: chest wall non-tender, lungs clear, normal breath sounds Abdomen: normal bowel sounds, non tender, soft, no organomegaly Edema: no edema noted Arm (L), no edema noted Arm (R), no edema noted Leg (L), no edema noted Leg (R), no edema noted Pedal (L), no edema noted Pedal (R), no edema noted Generalized YASEMIN HUGGINS Sep 27, 2017 11:21
[2017-09-27 12:04] VITALS: BP 101/69
[2017-09-27 16:08] VITALS: BP 104/71
--- NOTE | 2017-09-27 17:46 | Cardiology Report ---
APPROVED REPORT EKG Measurement Heart [id number] Sinus rhythm with short VT Otherwise normal ECG
[2017-09-27 20:16] VITALS: BP 119/73
[2017-09-27] MEDS: Tamsulosin 0.4mg cap ORAL SCH (21:13)
[2017-09-28 00:30] VITALS: BP 121/76
[2017-09-28] MEDS: NS w/KCl 20mEq 1,000 ML IV SCH ×2 (03:27→14:26)
[2017-09-28] MEDS: Piperacillin/Tazobactam 3.375 GM in D5W 110 ML IVPB SCH ×3 (03:27→18:01)
--- NOTE | 2017-09-28 04:00 | Progress Note ---
DATE: 09/27/2017 CARDIOLOGY PROGRESS NOTE SUBJECTIVE: The patient has not passed her stone. She continues to have back pain. OBJECTIVE: VITAL SIGNS: Stable. LUNGS: Clear. CARDIAC: Regular. ABDOMEN: Soft. EXTREMITIES: No edema. LABORATORY DATA: Uric acid is 2.5. CK has normalized. IMPRESSION: 1. Resolved lactic acidosis. 2. Resolved rhabdomyolysis. 3. Ureteral stone with pain. 4. Severe sepsis, resolved. 5. Hypertension, now controlled. 6. Hypovolemia and dehydration, corrected. PLAN: 1. Continue IV fluids. 2. Empiric antibiotics. 3. The patient agrees now to cysto with stone extraction. Toy Lopez M.D. DR: Janki JOB#: [id number] CC:
[2017-09-28 04:51] VITALS: BP 153/97
[2017-09-28 08:00] VITALS: BP 108/73
--- NOTE | 2017-09-28 08:44 | General Progress Note ---
Assessment/Plan Problem List: (1) Kidney stone on right side ICD Codes: N20.0 - Calculus of kidney SNOMED: 59296334 (2) anxiety (3) dizziness (4) Headache ICD Codes: R51 - Headache SNOMED: 48841237 (5) UTI (urinary tract infection) ICD Codes: N39.0 - Urinary tract infection, site not specified SNOMED: 25855534 (6) Back pain ICD Codes: M54.9 - Dorsalgia, unspecified SNOMED: 743163980 Status: stable Assessment/Plan ivf pain rx monitor labs nsaids repeat cirilo- follow up hydro follow up Subjective ROS Limited/Unobtainable: No Constitutional: Reports: malaise, weakness HEENT: Reports: no symptoms Cardiovascular: Reports: no symptoms Respiratory: Reports: no symptoms Gastrointestinal/Abdominal: Reports: nausea Genitourinary: Reports: flank pain Neurologic/Psychiatric: Reports: no symptoms Endocrine: Reports: no symptoms Hematologic/Lymphatic: Reports: no symptoms Allergies: Coded Allergies: SULFA (SULFONAMIDE ANTIBIOTICS) (Verified Allergy, Intermediate, 09/24/17) NIACIN (Verified Allergy, Unknown, 09/24/17) All Systems: reviewed and negative except above Subjective still with back pain/right flank pain. CT + right kidney stone at upj. mild heartburn and nausea. refusing surgery Objective Last 24 Hour Vital Signs Date Time Temp Pulse Resp B/P (MAP) Pulse Ox O2 Delivery O2 Flow Rate FiO2 09/28/17 04:51 97.8 108 19 153/97 100 97.8 09/28/17 00:30 98.1 89 18 121/76 97 98.1 09/27/17 20:16 98.0 92 19 119/73 97 98.0 09/27/17 16:08 98.0 73 18 104/71 95 Room Air 98.0 09/27/17 12:04 97.7 80 20 101/69 95 Room Air 97.7 Intake and Output 09/27/17 09/28/17 19:00 07:00 Intake Total 1800 ml 360 ml Output Total 800 ml Balance 1000 ml 360 ml Intake Oral 1800 ml 360 ml Output Urine Total 800 ml # Voids 3 Height (Feet): 5 Height (Inches): 6.00 Weight (Pounds): 150 Objective General Appearance: WD/WN, alert Neck: supple Cardiovascular: normal rate, regular rhythm Respiratory/Chest: chest wall non-tender, lungs clear, normal breath sounds Abdomen: normal bowel sounds, non tender, soft, no organomegaly Edema: no edema noted Arm (L), no edema noted Arm (R), no edema noted Leg (L), no edema noted Leg (R), no edema noted Pedal (L), no edema noted Pedal (R), no edema noted Generalized YASEMIN HUGGINS Sep 28, 2017 08:44
[2017-09-28] MEDS: LORazepam 1mg tab ORAL SCH ×3 (08:59→18:01)
[2017-09-28] MEDS: Heparin 5000 units/ml inj SUBQ SCH ×3 (09:00→21:14)
[2017-09-28] MEDS: Atenolol 25mg tab ORAL SCH (09:00)
[2017-09-28 12:00] VITALS: BP 98/60
--- NOTE | 2017-09-28 12:38 | Urology Progress Note ---
Assessment/Plan Assessment/Plan 1. Nephrolithiasis with small obstructive stone of the right UVJ. 2. Minimal hydronephrosis. 3. Urinary frequency by history. 4. Microhematuria. 5. Colic. 6. Mild pyuria. 7. Adrenal nodule, possibly small adenoma. monitor clinically d/w pt fully pt wants to cont with trial of passage pt does not want any surgical intervention flomax and strain urine d/w 's John and Gabriel Subjective Allergies: Coded Allergies: SULFA (SULFONAMIDE ANTIBIOTICS) (Verified Allergy, Intermediate, 09/24/17) NIACIN (Verified Allergy, Unknown, 09/24/17) Subjective feels fair, relatively comfortable, essentially same pain she's had for two months, no stone seen in strainer Objective Last 24 Hour Vital Signs Date Time Temp Pulse Resp B/P (MAP) Pulse Ox O2 Delivery O2 Flow Rate FiO2 09/28/17 09:00 72 108/73 09/28/17 08:00 97.9 72 18 108/73 100 Room Air 97.9 09/28/17 04:51 97.8 108 19 153/97 100 97.8 09/28/17 00:30 98.1 89 18 121/76 97 98.1 09/27/17 20:16 98.0 92 19 119/73 97 98.0 09/27/17 16:08 98.0 73 18 104/71 95 Room Air 98.0 Intake and Output 09/27/17 09/28/17 19:00 07:00 Intake Total 1800 ml 360 ml Output Total 800 ml Balance 1000 ml 360 ml Intake Oral 1800 ml 360 ml Output Urine Total 800 ml # Voids 3 Microbiology Date/Time Source Procedure Growth Status 09/24/17 12:05 Blood Blood Culture - Preliminary NO GROWTH AFTER 72 HOURS Resulted Current Medications Medications (Trade) Dose Ordered Sig/Hany Route PRN Reason Start Time Stop Time Status Last Admin Dose Admin Acetaminophen (Tylenol) 650 mg Q4H PRN ORAL Mild Pain/Temp > 100.5 09/24/17 17:27 10/24/17 17:26 Al Hydroxide/Mg Hydroxide (Mylanta) 30 ml Q6H PRN ORAL acid reflux 09/28/17 08:15 10/28/17 08:14 09/28/17 09:24 Atenolol (Tenormin) 25 mg DAILY ORAL 09/26/17 09:00 10/26/17 08:59 09/26/17 09:02 Heparin Sodium (Porcine) (Heparin 5000 units/ml) 5,000 units EVERY 12 HOURS SUBQ 09/24/17 21:00 10/24/17 20:59 09/27/17 21:16 Hydromorphone HCl (Dilaudid) 1 mg TID PRN IVP Severe Pain (Pain Scale 7-10) 09/24/17 17:27 10/01/17 17:26 09/28/17 03:54 Ibuprofen (Motrin) 600 mg THREE TIMES A DAY ORAL 09/26/17 13:00 10/26/17 12:59 Lorazepam (Ativan) 1 mg THREE TIMES A DAY ORAL 09/24/17 18:00 10/01/17 17:59 09/28/17 08:59 Nicotine (Nicoderm) 1 patch Q24H TDERMAL 09/24/17 20:00 10/24/17 19:59 09/27/17 21:13 Ondansetron HCl (Zofran) 4 mg Q6H PRN IVP Nausea & Vomiting 09/24/17 17:27 10/24/17 17:26 09/28/17 06:24 Piperacillin Sod/ Tazobactam Sod 3.375 gm/Dextrose 110 ml @ 27.5 mls/hr Q8H IVPB 09/24/17 18:30 10/01/17 18:29 09/28/17 11:08 Sodium Chloride 1,000 ml @ 100 mls/hr Q10H IV 09/24/17 20:00 10/24/17 19:59 09/28/17 03:27 Tamsulosin HCl (Flomax) 0.4 mg BEDTIME ORAL 09/25/17 21:00 10/25/17 20:59 09/27/17 21:13 Height (Feet): 5 Height (Inches): 6.00 Weight (Pounds): 150 Objective exam stable LA MORRISON Sep 28, 2017 12:38
[2017-09-28 16:00] VITALS: BP 91/64
[2017-09-28] MEDS ORDERED: HYDROcodone/Acetamin 10/325 tab ORAL PRN (19:15)
--- NOTE | 2017-09-28 20:00 | Progress Note ---
DATE: 09/28/2017 SUBJECTIVE: The patient still has flank pain, wants to defer surgery, and wants to continue with hydration and pain control. OBJECTIVE: Vitals stable. Afebrile. Exam unchanged. PLAN: Recommend transition to oral pain therapy and outpatient management over the next 24 to 48 hours if no plan for urologic intervention. Toy Lopez M.D. DR: DAX JOB#: [id number] CC:
[2017-09-28 20:10] VITALS: BP 114/74
[2017-09-28] MEDS: Tamsulosin 0.4mg cap ORAL SCH (21:09)
[2017-09-29] VITALS: BP 91/57
[2017-09-29] MEDS: Piperacillin/Tazobactam 3.375 GM in D5W 110 ML IVPB SCH ×3 (03:05→20:50)
[2017-09-29 08:00] VITALS: BP_SYST 98; BP_SYST 99; BP_DIAS 58; BP_DIAS 65
--- NOTE | 2017-09-29 08:20 | General Progress Note ---
Assessment/Plan Problem List: (1) Kidney stone on right side ICD Codes: N20.0 - Calculus of kidney SNOMED: 32782932 (2) anxiety (3) dizziness (4) Headache ICD Codes: R51 - Headache SNOMED: 54186646 (5) UTI (urinary tract infection) ICD Codes: N39.0 - Urinary tract infection, site not specified SNOMED: 07643959 (6) Back pain ICD Codes: M54.9 - Dorsalgia, unspecified SNOMED: 843355420 Status: stable, not improved Assessment/Plan ivf pain rx monitor labs nsaids repeat cirilo- follow up hydro message left with for follow up Subjective ROS Limited/Unobtainable: No Constitutional: Reports: malaise, weakness HEENT: Reports: no symptoms Cardiovascular: Reports: no symptoms Respiratory: Reports: no symptoms Gastrointestinal/Abdominal: Reports: no symptoms Genitourinary: Reports: flank pain Neurologic/Psychiatric: Reports: no symptoms Endocrine: Reports: no symptoms Hematologic/Lymphatic: Reports: no symptoms Allergies: Coded Allergies: SULFA (SULFONAMIDE ANTIBIOTICS) (Verified Allergy, Intermediate, 09/24/17) NIACIN (Verified Allergy, Unknown, 09/24/17) All Systems: reviewed and negative except above Subjective still with back pain/right flank pain. renal cirilo ordered yesterday to follow up on mild hydro. asking to be re-evaluated for surgery for stone removal Objective Last 24 Hour Vital Signs Date Time Temp Pulse Resp B/P (MAP) Pulse Ox O2 Delivery O2 Flow Rate FiO2 09/29/17 08:00 97.1 70 18 98/65 98 97.1 09/29/17 00:00 97.6 63 17 91/57 100 Room Air 97.6 09/28/17 21:18 98.0 09/28/17 20:10 97.3 79 18 114/74 99 Room Air 97.3 09/28/17 16:00 98.0 67 18 91/64 98 Room Air 98.0 09/28/17 12:00 97.9 65 18 98/60 98 Room Air 97.9 09/28/17 09:00 72 108/73 Intake and Output 09/28/17 09/29/17 19:00 07:00 Intake Total 850 ml 2250 ml Output Total 3 ml 6 ml Balance 847 ml 2244 ml Intake Oral 850 ml 1850 ml IV Total 400 ml Output Urine Total 3 ml 6 ml # Bowel Movements 1 Height (Feet): 5 Height (Inches): 6.00 Weight (Pounds): 150 Objective General Appearance: WD/WN, alert Neck: supple Cardiovascular: normal rate, regular rhythm Respiratory/Chest: chest wall non-tender, lungs clear, normal breath sounds Abdomen: normal bowel sounds, non tender, soft, no organomegaly Edema: no edema noted Arm (L), no edema noted Arm (R), no edema noted Leg (L), no edema noted Leg (R), no edema noted Pedal (L), no edema noted Pedal (R), no edema noted Generalized YASEMIN HGUGINS September 29, 2017 08:20
[2017-09-29] MEDS: Atenolol 25mg tab ORAL SCH (08:37)
[2017-09-29] MEDS: LORazepam 1mg tab ORAL SCH ×3 (08:37→17:48)
[2017-09-29] MEDS: Heparin 5000 units/ml inj SUBQ SCH ×2 (08:40→20:47)
--- NOTE | 2017-09-29 09:58 | Diagnostic Imaging Report ---
Indication: Flank pain Technique: Grayscale and duplex Doppler imaging of the kidneys performed. Comparison: CT and ultrasound 09/25/2017 Findings: Previously demonstrated right hydronephrosis has essentially resolved significantly improved. There are a few echogenic foci within the kidneys presumably small nonobstructive stones. The right kidney is 10 cm and the left is about 9 cm in length. The bladder and IVC unremarkable IMPRESSION: Interval resolution of right hydronephrosis compared to 09/25/2017 examinations. Suggestion of small bilateral nonobstructive stones
[2017-09-29] MEDS: NS w/KCl 20mEq 1,000 ML IV SCH ×3 (11:21→20:50)
--- NOTE | 2017-09-29 11:31 | Urology Progress Note ---
Assessment/Plan Assessment/Plan 1. Nephrolithiasis with small obstructive stone of the right UVJ, passed? 2. Minimal hydronephrosis hx, resolved. 3. Urinary frequency by history. 4. Microhematuria. 5. Colic. 6. Mild pyuria. 7. Adrenal nodule, possibly small adenoma. cont to monitor clinically d/w pt fully flomax and strain urine hydro resolved, stone passed? consider repeat CT? d/w Dr. Rios Subjective Allergies: Coded Allergies: SULFA (SULFONAMIDE ANTIBIOTICS) (Verified Allergy, Intermediate, 09/24/17) NIACIN (Verified Allergy, Unknown, 09/24/17) Subjective feels fair, relatively comfortable, essentially same pain she's had for two months, no stone seen in strainer Objective Last 24 Hour Vital Signs Date Time Temp Pulse Resp B/P (MAP) Pulse Ox O2 Delivery O2 Flow Rate FiO2 09/29/17 08:37 70 98/65 09/29/17 08:00 97.1 70 18 98/65 98 97.1 09/29/17 00:00 97.6 63 17 91/57 100 Room Air 97.6 09/28/17 21:18 98.0 09/28/17 20:10 97.3 79 18 114/74 99 Room Air 97.3 09/28/17 16:00 98.0 67 18 91/64 98 Room Air 98.0 09/28/17 12:00 97.9 65 18 98/60 98 Room Air 97.9 Intake and Output 09/28/17 09/29/17 19:00 07:00 Intake Total 850 ml 2250 ml Output Total 3 ml 6 ml Balance 847 ml 2244 ml Intake Oral 850 ml 1850 ml IV Total 400 ml Output Urine Total 3 ml 6 ml # Bowel Movements 1 Microbiology Date/Time Source Procedure Growth Status 09/24/17 12:05 Blood Blood Culture - Preliminary NO GROWTH AFTER 4 DAYS Resulted Current Medications Medications (Trade) Dose Ordered Sig/Hany Route PRN Reason Start Time Stop Time Status Last Admin Dose Admin Acetaminophen (Tylenol) 650 mg Q4H PRN ORAL Temp > 100.5 09/28/17 20:00 10/24/17 17:26 Acetaminophen/ Hydrocodone Bitart (Dexter 10/325) 1 tab Q6H PRN ORAL For Pain 09/28/17 19:15 10/05/17 19:14 Al Hydroxide/Mg Hydroxide (Mylanta) 30 ml Q6H PRN ORAL acid reflux 09/28/17 08:15 10/28/17 08:14 09/28/17 09:24 Atenolol (Tenormin) 25 mg DAILY ORAL 09/26/17 09:00 10/26/17 08:59 09/26/17 09:02 Heparin Sodium (Porcine) (Heparin 5000 units/ml) 5,000 units EVERY 12 HOURS SUBQ 09/24/17 21:00 10/24/17 20:59 09/27/17 21:16 Hydromorphone HCl (Dilaudid) 1 mg TID PRN IVP Severe Pain (Pain Scale 7-10) 09/24/17 17:27 10/01/17 17:26 09/29/17 06:39 Ibuprofen (Motrin) 600 mg THREE TIMES A DAY ORAL 09/26/17 13:00 10/26/17 12:59 Lorazepam (Ativan) 1 mg THREE TIMES A DAY ORAL 09/24/17 18:00 10/01/17 17:59 09/28/17 18:01 Nicotine (Nicoderm) 1 patch Q24H TDERMAL 09/24/17 20:00 10/24/17 19:59 09/28/17 21:09 Ondansetron HCl (Zofran) 4 mg Q6H PRN IVP Nausea & Vomiting 09/24/17 17:27 10/24/17 17:26 09/29/17 08:42 Piperacillin Sod/ Tazobactam Sod 3.375 gm/Dextrose 110 ml @ 27.5 mls/hr Q8H IVPB 09/24/17 18:30 10/01/17 18:29 09/29/17 11:22 Sodium Chloride 1,000 ml @ 100 mls/hr Q10H IV 09/24/17 20:00 10/24/17 19:59 09/29/17 11:21 Tamsulosin HCl (Flomax) 0.4 mg BEDTIME ORAL 09/25/17 21:00 10/25/17 20:59 09/28/17 21:09 Height (Feet): 5 Height (Inches): 6.00 Weight (Pounds): 150 Objective exam stable renal u/s showed resolution of right hydro BAMSHAD,LA September 29, 2017 11:30
[2017-09-29 12:00] VITALS: BP 99/61
[2017-09-29] MEDS ORDERED: Gastrograffin 30ml ORAL PRN (15:45)
[2017-09-29 16:00] VITALS: BP 99/74
[2017-09-29 20:00] VITALS: BP 105/60
[2017-09-29] MEDS: Tamsulosin 0.4mg cap ORAL SCH (20:48)
[2017-09-30 00:31] VITALS: BP 107/63
[2017-09-30] MEDS: Piperacillin/Tazobactam 3.375 GM in D5W 110 ML IVPB SCH ×2 (02:27→10:14)
[2017-09-30 04:00] VITALS: BP 130/77
[2017-09-30] MEDS: NS w/KCl 20mEq 1,000 ML IV SCH ×2 (06:24→16:00)
[2017-09-30 08:00] VITALS: BP 101/51
[2017-09-30] MEDS: LORazepam 1mg tab ORAL SCH ×3 (08:51→17:37)
[2017-09-30] MEDS: Atenolol 25mg tab ORAL SCH (08:52)
[2017-09-30] MEDS: Heparin 5000 units/ml inj SUBQ SCH (08:53)
--- NOTE | 2017-09-30 09:16 | Urology Progress Note ---
Assessment/Plan Assessment/Plan 1. Nephrolithiasis with small obstructive stone of the right UVJ, passed. 2. Minimal hydronephrosis hx, resolved. 3. Urinary frequency by history. 4. Microhematuria. 5. Colic. 6. Mild pyuria. 7. Adrenal nodule, possibly small adenoma. ureteral stone passed ok to dc flomax current back pain prob not urologic origin d/w pt fully d/w Dr. Rios Subjective Allergies: Coded Allergies: SULFA (SULFONAMIDE ANTIBIOTICS) (Verified Allergy, Intermediate, 09/24/17) NIACIN (Verified Allergy, Unknown, 09/24/17) Subjective feels fair, relatively comfortable, vague lower back pain Objective Last 24 Hour Vital Signs Date Time Temp Pulse Resp B/P (MAP) Pulse Ox O2 Delivery O2 Flow Rate FiO2 09/30/17 08:52 63 101/51 09/30/17 04:00 97.5 79 18 130/77 96 Room Air 97.5 09/30/17 00:31 98.1 70 18 107/63 98 Room Air 98.1 09/29/17 20:00 98.3 73 18 105/60 97 Room Air 98.3 09/29/17 16:00 97.8 79 18 99/74 100 Room Air 97.8 09/29/17 12:00 98.5 70 17 99/61 99 98.5 Intake and Output 09/29/17 09/30/17 19:00 07:00 Intake Total 1005.0 ml 1120.0 ml Balance 1005.0 ml 1120.0 ml Intake Oral 850 ml 500 ml IV Total 155.0 ml 620.0 ml # Voids 4 1 Microbiology Date/Time Source Procedure Growth Status 09/24/17 12:05 Blood Blood Culture - Final NO GROWTH AFTER 5 DAYS Complete Current Medications Medications (Trade) Dose Ordered Sig/Hany Route PRN Reason Start Time Stop Time Status Last Admin Dose Admin Acetaminophen (Tylenol) 650 mg Q4H PRN ORAL Temp > 100.5 09/28/17 20:00 10/24/17 17:26 Acetaminophen/ Hydrocodone Bitart (Amber 10/325) 1 tab Q6H PRN ORAL For Pain 09/28/17 19:15 10/05/17 19:14 Al Hydroxide/Mg Hydroxide (Mylanta) 30 ml Q6H PRN ORAL acid reflux 09/28/17 08:15 10/28/17 08:14 09/28/17 09:24 Atenolol (Tenormin) 25 mg DAILY ORAL 09/26/17 09:00 10/26/17 08:59 09/26/17 09:02 Heparin Sodium (Porcine) (Heparin 5000 units/ml) 5,000 units EVERY 12 HOURS SUBQ 09/24/17 21:00 10/24/17 20:59 09/27/17 21:16 Hydromorphone HCl (Dilaudid) 1 mg TID PRN IVP Severe Pain (Pain Scale 7-10) 09/24/17 17:27 10/01/17 17:26 09/30/17 06:29 Ibuprofen (Motrin) 600 mg THREE TIMES A DAY ORAL 09/26/17 13:00 10/26/17 12:59 Lorazepam (Ativan) 1 mg THREE TIMES A DAY ORAL 09/24/17 18:00 10/01/17 17:59 09/30/17 08:51 Nicotine (Nicoderm) 1 patch Q24H TDERMAL 09/24/17 20:00 10/24/17 19:59 09/28/17 21:09 Ondansetron HCl (Zofran) 4 mg Q6H PRN IVP Nausea & Vomiting 09/24/17 17:27 10/24/17 17:26 09/30/17 08:59 Piperacillin Sod/ Tazobactam Sod 3.375 gm/Dextrose 110 ml @ 27.5 mls/hr Q8H IVPB 09/24/17 18:30 10/01/17 18:29 09/30/17 02:27 Sodium Chloride 1,000 ml @ 100 mls/hr Q10H IV 09/24/17 20:00 10/24/17 19:59 09/30/17 06:24 Tamsulosin HCl (Flomax) 0.4 mg BEDTIME ORAL 09/25/17 21:00 10/25/17 20:59 09/29/17 20:48 Height (Feet): 5 Height (Inches): 6.00 Weight (Pounds): 150 Objective exam stable renal u/s showed resolution of right hydro repeat CT d/w radiologist, no ureteral stone noted on right side LA MORRISON September 30, 2017 09:16
[2017-09-30 12:00] VITALS: BP 118/68
[2017-09-30 16:00] VITALS: BP 98/57
[2017-09-30 16:09] VITALS: BP 98/57
[2017-09-30] MEDS ORDERED: NORCO 10-325 T1 EACH ORAL (18:10)
--- NOTE | 2017-09-30 20:00 | Discharge Summary ---
DATE OF ADMISSION: 09/24/2017 DATE OF DISCHARGE: 09/30/2017 ADMISSION DIAGNOSES: 1. Back pain, possibly urinary tract infection and kidney stone. 2. Mild hydronephrosis. DISCHARGE DIAGNOSES: 1. Back pain, possibly urinary tract infection and kidney stone. 2. Mild hydronephrosis. HOSPITAL COURSE: The patient is a 61-year-old female who presented with complaints of severe right-sided flank pain. She was diagnosed with impacted kidney stone. She had mild hydronephrosis. She was admitted for IV pain control and hydration. She had no improvement initially in her pain. Urology consultation was obtained. The patient had a repeat ultrasound that showed no evidence of any hydronephrosis and later CT urogram that showed that the stone had passed. The patient will be discharged home on pain medications as needed for back pain. She has been instructed to follow up with her PMD. DISCHARGE MEDICATIONS: Please see discharge list for discharge medications. DIET: Regular diet. ACTIVITY: Ab-ellis. Con Rios M.D. DR: Jennifer JOB#: [id number] CC:
--- NOTE | 2017-10-01 14:40 | Diagnostic Imaging Report ---
Indication: History of a right ureteral stone. Vague abdominal pain Technique: Continuous helical transaxial imaging of the abdomen and pelvis was obtained from the lung bases to the pubic symphysis. No intravenous contrast was administered. Coronal 2-D reformats were also obtained. Automatic Exposure Control was utilized. Total Dose length Product (DLP): 628.[address] Dose Index Volume (CTDIvol): 12.77 mGy Comparison: 09/25/2017 CT Findings: Previous examination demonstrated a small stone at the right UVJ. The stone is no longer visualized within the ureter, bladder or urethra. There is no hydronephrosis demonstrated. No additional stones or new acute findings are identified. Kidneys appear unremarkable on noncontrast imaging. Gallbladder is unremarkable. There is a small hiatal hernia. The lung bases are clear. No free fluid identified. Moderate amount of formed stool retained within the colon and rectum. Atrophic uterus noted. IMPRESSION: Interval passage of a small stone previously demonstrated at the right UVJ. Currently no urinary tract stones identified. No hydronephrosis. Other incidental findings as above. Findings discussed with both Dr. Con Lynn and Dr. Moreno via telephone 8:30 a.m., 09/30/[address] scanner at [facility] is accredited by the [employer] and the scans are performed using dose optimization techniques as appropriate to a performed exam including Automatic Exposure control.
--- NOTE | 2017-10-02 03:15 | Progress Note ---
DATE: 09/30/2017 CARDIOLOGY PROGRESS NOTE SUBJECTIVE: Blood pressure range has improved. The patient is with less pain. Imaging studies revealed that the stone has passed. The patient is currently stable from cardiovascular standpoint. PLAN: She is advised to maintain adequate oral hydration as an outpatient. Toy Lopez M.D. DR: DAX JOB#: [id number] CC:
== END 2017-09-30 18:46 | disposition home or self-care (01) | DRG 690 ==
LOC: EDBD 11:37 → EMR 12:21 → 4E 14:16 → EDBEDREQ 15:42 → 3E 09-27 11:31
DX: N39.0 Urinary tract infection, site not specified (principal); E87.2 Acidosis; M62.82 Rhabdomyolysis; E44.1 Mild protein-calorie malnutrition; N13.0 Hydronephrosis with ureteropelvic junction obstruction; I10 Essential (primary) hypertension; E78.5 Hyperlipidemia, unspecified; F17.200 Nicotine dependence, unspecified, uncomplicated; E86.0 Dehydration; D75.1 Secondary polycythemia; F43.10 Post-traumatic stress disorder, unspecified; Z88.2 Allergy status to sulfonamides; Z88.8 Allergy status to other drugs, medicaments and biological substances; E27.8 Other specified disorders of adrenal gland; F41.9 Anxiety disorder, unspecified; R42 Dizziness and giddiness; R51 Headache
CPT/HCPCS: 36415; 71045; 74176; 76770; 80053; 80307; 81003; 82550; 82553; 83605; 83690; 84443; 84550; 85025; 87040; 93005; 99285; J2405

== ENCOUNTER 2017-11-12 03:11 | Emergency (ER) | payer MEDICARE, MEDICAID ==
[~2017-11-12] VITALS: Ht 167.6 cm; Wt 68.0 kg
[~2017-11-12 03:11] MED LIST changes: +NORCO 10-325 T1 EACH ORAL
[2017-11-12 03:17] VITALS: BP 142/84
--- NOTE | 2017-11-12 03:35 | Emergency Room Report ---
History of Present Illness General Chief Complaint: General Complaint Source: Patient Present Illness HPI Is a 61-year-old female with a history of migraine and take Fioricet daily. His been off of it for 24 hours and now has 3 episodes vomiting. Denies any fever or chills. Denies any diarrhea. She said she found out that Fioricet has barbiturate and it and admit versus leg worse. Denies any other complaint. Was here recently for kidney stone. Allergies: Coded Allergies: SULFA (SULFONAMIDE ANTIBIOTICS) (Verified Allergy, Intermediate, 09/24/17) NIACIN (Verified Allergy, Unknown, 09/24/17) Patient History Past Medical History: see triage record, old chart reviewed Past Surgical History: other Pertinent Family History: none Social History: Reports: smoking Last Menstrual Period: NA Now: No Immunizations: other Reviewed Nursing Documentation: PMH: Agreed; PSxH: Agreed Nursing Documentation-PMH Past Medical History: No History, Except For Hx Cardiac Problems: Yes - TACHYCARDIA Hx Hypertension: Yes Hx Pacemaker: No - THYROID NODULE Hx Cancer: Yes Hx Gastrointestinal Problems: No - APPENDECTOMY History Of Psychiatric Problem: Yes - PTSD Hx Neurological Problems: No Hx Head Trauma: Yes - 2013 concussion Review of Systems Eye: Denies: eye pain, blurred vision ENT: Denies: ear pain, nose congestion, throat swelling Respiratory: Denies: cough, shortness of breath Cardiovascular: Denies: chest pain, palpitations Gastrointestinal: Reports: nausea, vomiting; Denies: abdominal pain, diarrhea Musculoskeletal: Denies: back pain, joint pain Skin: Denies: rash Neurological: Denies: headache, numbness Endocrine: Denies: increased thirst, increased urine Hematologic/Lymphatic: Denies: easy bruising All Other Systems: negative except mentioned in HPI Physical Exam Vital Signs Date Time Temp Pulse Resp B/P (MAP) Pulse Ox O2 Delivery O2 Flow Rate FiO2 11/12/17 03:11 98.0 18 142/84 98 Room Air 98.1 11/12/17 03:17 98 vitals normal Sp02 EP Interpretation: reviewed, normal General Appearance: well appearing, no apparent distress, alert Head: normocephalic, atraumatic Eyes: bilateral eye PERRL, bilateral eye EOMI ENT: hearing grossly normal, normal pharynx Neck: full range of motion, supple, no meningismus Respiratory: chest non-tender, lungs clear, normal breath sounds Cardiovascular #1: regular rate, rhythm, no murmur Gastrointestinal: normal bowel sounds, non tender, no mass, no organomegaly, no bruit, non-distended Musculoskeletal: back normal, gait/station normal, normal range of motion Psychiatric: mood/affect normal Skin: warm/dry Medical Decision Making Diagnostic Impression: Primary Impression: Opiate withdrawal Additional Impression: UTI (urinary tract infection) Qualified Codes: N30.00 - Acute cystitis without hematuria ER Course Patient presents with vomiting secondary to opiate withdrawal. No evidence of toxicity. She was extremely defensive and not cooperative. When I asked her how much spheres said she was taking a day and were not she still have any left she started yelling at me laming that him being discriminating against her saying that she is a drug addict. I told patient that I was asking to see if she has narcotic/pain medication at home that she can take. She has no active vomiting here after Zofran. We'll check urine is negative for infection we'll discharge home. CT/MRI/US Diagnostic Results CT/MRI/US Diagnostic Results : Imaging Test Ordered: CT abdomen and pelvis Impression read by radiologist. nonobstructing in the left kidney Last Vital Signs Date Time Temp Pulse Resp B/P (MAP) Pulse Ox O2 Delivery O2 Flow Rate FiO2 11/12/17 03:17 98.1 98 18 142/84 98 Room Air 98.1 Status: improved Disposition: HOME, SELF-CARE Condition: Stable Scripts Cephalexin* (KEFLEX*) 500 Mg Capsule 500 MG ORAL TID, #21 CAP Prov: CYNDY PATEL M.D. 11/12/17 Ondansetron (Zofran) 4 Mg Tablet 4 MG ORAL Q6H PRN for Nausea & Vomiting, #10 TAB 0 Refills Prov: CYNDY PATEL M.D. 11/12/17 Additional Instructions: Take your pain medication. Follow-up with your doctor in 7 days. Return of worse. CYNDY PATEL M.D. Nov 12, 2017 03:35
[2017-11-12] MEDS ORDERED: ZOFRAN4 MG ORAL (03:43)
[2017-11-12 04:05] LABS: BILIRUBIN, URINE NEGATIVE (NEGATIVE); COLOR,URINE PALE YELLOW; GLUCOSE, URINE (UA) NEGATIVE (NEGATIVE); KETONES,URINE NEGATIVE (NEGATIVE); LEUKOCYTE ESTERASE ,URINE 3+ (NEGATIVE); NITRITE,URINE NEGATIVE (NEGATIVE); PH,URINE 5 (4.5-8.0); PROTEIN,URINE 1+ (NEGATIVE); UROBILINOGEN,URINE NORMAL MG/DL (0.0-1.0)
[2017-11-12 04:11] LABS: APPEARANCE,URINE CLOUDY
[2017-11-12] MEDS ORDERED: CEPHALEXIN500 MG ORAL (06:07)
[2017-11-12 06:24] VITALS: BP 129/86
[2017-11-12 06:25] VITALS: BP 129/86
== END 2017-11-12 06:25 | disposition home or self-care (01) ==
LOC: EMR 03:29
DX: F11.23 Opioid dependence with withdrawal (principal); N39.0 Urinary tract infection, site not specified; R11.10 Vomiting, unspecified; Z88.2 Allergy status to sulfonamides
CPT/HCPCS: 74176; 81003; 87086; 87181; 99284

== ENCOUNTER 2018-08-06 12:22 | Emergency (ER) | payer MEDICARE, MEDICAID ==
[~2018-08-06] VITALS: Ht 160 cm; Wt 68.0 kg
[~2018-08-06 12:22] MED LIST changes: +CEPHALEXIN500 MG ORAL; +ZOFRAN4 MG ORAL
--- NOTE | 2018-08-06 12:39 | NUR ---
ED Nurse Note: Pt AINA from home due to feeling dizziness when she was in the kitchen earlier today, stated she usually feels this way when she is anxious. HR 104 upon arrival, PA aware. AOx4, other VSS. Will cont to monitor.
[2018-08-06 13:21] LABS: APPEARANCE,URINE CLEAR; BILIRUBIN, URINE NEGATIVE (NEGATIVE); COLOR,URINE PALE YELLOW; GLUCOSE, URINE (UA) NEGATIVE (NEGATIVE); KETONES,URINE NEGATIVE (NEGATIVE); LEUKOCYTE ESTERASE ,URINE 1+ (NEGATIVE); NITRITE,URINE NEGATIVE (NEGATIVE); PH,URINE 6 (4.5-8.0); PROTEIN,URINE NEGATIVE (NEGATIVE); UROBILINOGEN,URINE NORMAL MG/DL (0.0-1.0)
--- NOTE | 2018-08-06 13:37 | NUR ---
ED Nurse Note: pt refused IV hydration. per pt, " I can drink water." Dr. Lovell will notified.
[2018-08-06 13:54] LABS: BASOPHILS % (AUTO) 2.2 % (0.0-2.0); EOSINOPHILS % (AUTO) 2.4 % (0.0-3.0); HEMATOCRIT 53.1 % (37.0-47.0); HEMOGLOBIN 17.5 G/DL (12.0-16.0); MEAN CORPUSCULAR VOLUME 94 FL (80-99); MONOCYTES % (AUTO) 6.8 % (1.0-10.0); NEUTROPHILS % (AUTO) 72.6 % (45.0-75.0); PLATELET COUNT 204 K/UL (150-450); RED BLOOD COUNT 5.63 M/UL (4.20-5.40); RED CELL DISTRIBUTION WIDTH 12.3 % (11.6-14.8)
[2018-08-06 13:57] LABS: ANION GAP 14 mmol/L (5-15); BLOOD UREA NITROGEN 16 mg/dL (7-18); CALCIUM 10.3 MG/DL (8.5-10.1); CARBON DIOXIDE 26 MMOL/L (21-32); CHLORIDE 101 MMOL/L (98-107); CREATININE 1.1 MG/DL (0.55-1.30); SODIUM 141 MMOL/L (136-145)
[2018-08-06 14:10] LABS: ALANINE AMINOTRANSFERASE 16 U/L (12-78); ALBUMIN 4.7 G/DL (3.4-5.0); ALBUMIN/GLOBULIN RATIO 1.2 (1.0-2.7); ALKALINE PHOSPHATASE 115 U/L (46-116); ASPARTATE AMINO TRANSFERASE 14 U/L (15-37); BILIRUBIN,TOTAL 0.5 MG/DL (0.2-1.0); CKMB 0.9 NG/ML (0.0-3.6); CREATINE KINASE 43 U/L (26-308)
[2018-08-06 14:24] VITALS: BP 118/78
--- NOTE | 2018-08-06 15:20 | Diagnostic Imaging Report ---
Indication: Cough Technique: One view of the chest Comparison: 09/24/2017 Findings: Lungs and pleural spaces are clear. Heart size is normal. No significant interim change Impression: No acute process
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
[2018-08-06 16:22] VITALS: BP 127/70
--- NOTE | 2018-08-06 16:24 | NUR ---
ER DISCHARGE NOTE: Patient is cleared to be discharged per ERMD, pt is aox4, on room air, with stable vital signs. pt was given dc instructions, pt was able to verbalize understanding, pt id band removed. pt is able to ambulate with steady gait. pt took all belongings.
== END 2018-08-06 16:25 | disposition home or self-care (01) ==
LOC: EDUNIT# 12:22 → EDBD 12:22 → EMR 13:30
DX: F41.9 Anxiety disorder, unspecified (principal); R00.2 Palpitations; I10 Essential (primary) hypertension
CPT/HCPCS: 36415; 71045; 80053; 81003; 82550; 82553; 84484; 85025; 93005; 99284

== ENCOUNTER 2018-08-12 15:08 | Emergency (ER) | payer MEDICARE, MEDICAID ==
[~2018-08-12] VITALS: Ht 170.2 cm; Wt 49.9 kg
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
[2018-08-12] MEDS ORDERED: Meclizine 25mg tab ORAL STA (15:17)
[2018-08-12 15:20] VITALS: BP 130/86
--- NOTE | 2018-08-12 15:25 | NUR ---
ED Nurse Note: patient was darell in by RA complaining of dissiness, per patient she was here at [facility] ER at August 06, and now she feel same s/s. VSS at this time, AAO x4, skin is dry, intact, will continue to monitor.
[2018-08-12 16:18] LABS: APPEARANCE,URINE SLIGHTLY CLOUDY; BILIRUBIN, URINE NEGATIVE (NEGATIVE); COLOR,URINE PALE YELLOW; GLUCOSE, URINE (UA) NEGATIVE (NEGATIVE); KETONES,URINE NEGATIVE (NEGATIVE); LEUKOCYTE ESTERASE ,URINE 2+ (NEGATIVE); NITRITE,URINE POSITIVE (NEGATIVE); PH,URINE 5 (4.5-8.0); PROTEIN,URINE NEGATIVE (NEGATIVE); UROBILINOGEN,URINE NORMAL MG/DL (0.0-1.0)
[2018-08-12 16:21] LABS: BASOPHILS % (AUTO) 1.3 % (0.0-2.0); EOSINOPHILS % (AUTO) 3.6 % (0.0-3.0); HEMATOCRIT 46.1 % (37.0-47.0); HEMOGLOBIN 15.2 G/DL (12.0-16.0); MEAN CORPUSCULAR VOLUME 94 FL (80-99); MONOCYTES % (AUTO) 6.3 % (1.0-10.0); NEUTROPHILS % (AUTO) 62.8 % (45.0-75.0); PLATELET COUNT 181 K/UL (150-450); RED BLOOD COUNT 4.92 M/UL (4.20-5.40); RED CELL DISTRIBUTION WIDTH 12.4 % (11.6-14.8)
[2018-08-12 16:38] LABS: INR 0.9 (0.9-1.1)
[2018-08-12 16:41] LABS: ANION GAP 10 mmol/L (5-15); BLOOD UREA NITROGEN 11 mg/dL (7-18); CALCIUM 9.4 MG/DL (8.5-10.1); CARBON DIOXIDE 23 MMOL/L (21-32); CHLORIDE 105 MMOL/L (98-107); CREATININE 0.9 MG/DL (0.55-1.30); POTASSIUM 4.1 MMOL/L (3.5-5.1); SODIUM 138 MMOL/L (136-145)
[2018-08-12 16:53] LABS: ALANINE AMINOTRANSFERASE 20 U/L (12-78); ALBUMIN 3.9 G/DL (3.4-5.0); ALBUMIN/GLOBULIN RATIO 1.1 (1.0-2.7); ALKALINE PHOSPHATASE 92 U/L (46-116); ASPARTATE AMINO TRANSFERASE 20 U/L (15-37); BILIRUBIN,TOTAL 0.2 MG/DL (0.2-1.0); CREATINE KINASE 66 U/L (26-308)
[2018-08-12] MEDS ORDERED: NASONEX17 GM NASAL (17:09)
[2018-08-12] MEDS ORDERED: MECLIZINE HCL25 MG ORAL (17:09)
[2018-08-12] MEDS ORDERED: ONDANSETRON ODT4 MG BC (17:09)
[2018-08-12 17:33] VITALS: BP 130/85
--- NOTE | 2018-08-12 17:36 | NUR ---
ED Nurse Note: Pt cleared by health care Provider for discharge. DC instructions/prescription was given and explained to pt and verbalized understanding of teachings. All medical deviecs such as ID band removed. Pt is AAO x4, ambulatory and left with all personal belongings.
[2018-08-13] MEDS ORDERED: CEPHALEXIN500 MG ORAL (11:51)
== END 2018-08-12 17:36 | disposition home or self-care (01) ==
LOC: EDBD 15:08 → EMR 15:46
DX: R42 Dizziness and giddiness (principal); H65.93 Unspecified nonsuppurative otitis media, bilateral; I10 Essential (primary) hypertension; Z88.2 Allergy status to sulfonamides; Z88.8 Allergy status to other drugs, medicaments and biological substances
CPT/HCPCS: 36415; 80053; 81003; 82550; 83735; 83880; 84443; 84484; 85025; 85610; 85651; 85730; 93005; 99283

== ENCOUNTER 2018-08-13 09:22 | Emergency (ER) | payer MEDICARE, MEDICAID ==
[~2018-08-13] VITALS: Ht 167.6 cm; Wt 65.8 kg
[~2018-08-13 09:22] MED LIST changes: +MECLIZINE HCL25 MG ORAL; +NASONEX17 GM NASAL; +ONDANSETRON ODT4 MG BC
[2018-08-13 09:35] VITALS: BP 101/67
--- NOTE | 2018-08-13 09:39 | NUR ---
ED Nurse Note: Patient brought in by ambulance from home c/o dizziness, patient states it's "spinning", patient states that she had heart palpiation this morning. patient was here seen by MD for the same symptoms. patient states she is vegetarian, she is trying to eat healthy to lower cholesterol and she is eating/drinking fine without much problem. patient is connected to the monitor, vital signs stable, see flowsheet. a/o x4.
[2018-08-13] MEDS ORDERED: Meclizine 25mg tab ORAL ONE (09:45)
--- NOTE | 2018-08-13 10:08 | NUR ---
ED Nurse Note: patient went down for CT scan
[2018-08-13 10:13] LABS: APPEARANCE,URINE SLIGHTLY CLOUDY; BILIRUBIN, URINE NEGATIVE (NEGATIVE); COLOR,URINE PALE YELLOW; GLUCOSE, URINE (UA) NEGATIVE (NEGATIVE); KETONES,URINE NEGATIVE (NEGATIVE); LEUKOCYTE ESTERASE ,URINE 1+ (NEGATIVE); NITRITE,URINE POSITIVE (NEGATIVE); PH,URINE 6 (4.5-8.0); PROTEIN,URINE NEGATIVE (NEGATIVE); UROBILINOGEN,URINE NORMAL MG/DL (0.0-1.0)
[2018-08-13 10:14] LABS: BASOPHILS % (AUTO) 1.4 % (0.0-2.0); EOSINOPHILS % (AUTO) 2.8 % (0.0-3.0); HEMATOCRIT 47.4 % (37.0-47.0); HEMOGLOBIN 15.6 G/DL (12.0-16.0); LYMPHOCYTES % (AUTO) 22.8 % (20.0-45.0); MEAN CORPUSCULAR VOLUME 94 FL (80-99); MONOCYTES % (AUTO) 8.5 % (1.0-10.0); NEUTROPHILS % (AUTO) 64.4 % (45.0-75.0); PLATELET COUNT 200 K/UL (150-450); RED BLOOD COUNT 5.04 M/UL (4.20-5.40); RED CELL DISTRIBUTION WIDTH 12.5 % (11.6-14.8); WHITE BLOOD COUNT 6.6 K/UL (4.8-10.8)
--- NOTE | 2018-08-13 10:46 | NUR ---
ED Nurse Note: CMP specimen sent.
--- NOTE | 2018-08-13 10:57 | Diagnostic Imaging Report ---
Indications: Dizziness Technique: Spiral acquisitions obtained through the brain. Angled axial and coronal 5 x 5 mm slices were reconstructed. Total dose length product 1369.05 mGycm. CTDI vol(s) 70.38 mGy. Dose reduction achieved using automated exposure control Comparison: None. Findings: No acute intracranial hemorrhage or edema, mass effect, nor midline shift. Normal jacob-white differentiation. Normal-sized ventricles and extra axial CSF spaces. There is ethmoid sinus disease. Utilized orbits are unremarkable. The mastoids are clear. The calvarium is intact. Impression: Negative. No evidence of acute intracranial bleed or mass effect Incidental finding of minimal ethmoid sinus disease. The CT scanner at [facility] is accredited by the [employer] and the scans are performed using protocols designed to limit radiation exposure to as low as reasonably achievable to attain images of sufficient resolution adequate for diagnostic evaluation.
--- NOTE | 2018-08-13 10:59 | Diagnostic Imaging Report ---
Indication: Chest pain Technique: One view of the chest Comparison: 08/06/2018 Findings: Lungs and pleural spaces are clear. Heart size is normal. No significant interim change Impression: No acute process
[2018-08-13 11:04] LABS: ANION GAP 7 mmol/L (5-15); BLOOD UREA NITROGEN 18 mg/dL (7-18); CALCIUM 9.2 MG/DL (8.5-10.1); CARBON DIOXIDE 29 MMOL/L (21-32); CHLORIDE 106 MMOL/L (98-107); POTASSIUM 4.5 MMOL/L (3.5-5.1); SODIUM 142 MMOL/L (136-145)
[2018-08-13] MEDS ORDERED: cefTRIAXone 1 GM in NS 55 ML IVPB ONE (11:15)
[2018-08-13 11:17] LABS: ALANINE AMINOTRANSFERASE 23 U/L (12-78); ALBUMIN 3.7 G/DL (3.4-5.0); ALBUMIN/GLOBULIN RATIO 1.2 (1.0-2.7); ALKALINE PHOSPHATASE 88 U/L (46-116); ASPARTATE AMINO TRANSFERASE 18 U/L (15-37); BILIRUBIN,TOTAL 0.2 MG/DL (0.2-1.0); CKMB 1.2 NG/ML (0.0-3.6); CREATINE KINASE 52 U/L (26-308)
--- NOTE | 2018-08-13 11:32 | Emergency Room Report ---
History of Present Illness General Chief Complaint: Dizziness Source: Patient, EMS Present Illness HPI Patient present with reports of ongoing dizziness Denies any headache denies any chest pain Patient reports that she feels that she loses her balance when turning her head Patient reports that she was here however as she had another episode of acute dizziness paramedics were summoned Denies any vomiting or diarrhea denies any fevers or chills Denies any recent travel denies any focal weakness Allergies: Coded Allergies: SULFA (SULFONAMIDE ANTIBIOTICS) (Verified Allergy, Intermediate, 09/24/17) NIACIN (Verified Allergy, Unknown, 09/24/17) Patient History Past Medical History: see triage record Pertinent Family History: none Reviewed Nursing Documentation: PMH: Agreed; PSxH: Agreed Nursing Documentation-PMH Past Medical History: No History, Except For Hx Cardiac Problems: Yes Hx Hypertension: Yes Hx Pacemaker: No - THYROID NODULE Hx Cancer: Yes Hx Gastrointestinal Problems: No - APPENDECTOMY History Of Psychiatric Problem: Yes - PTSD Hx Neurological Problems: No Hx Head Trauma: Yes - 2012 concussion Review of Systems All Other Systems: negative except mentioned in HPI Physical Exam Vital Signs Date Time Temp Pulse Resp B/P (MAP) Pulse Ox O2 Delivery O2 Flow Rate FiO2 08/13/18 09:25 98.6 86 16 144/78 100 Room Air Sp02 EP Interpretation: reviewed, normal General Appearance: well appearing, no apparent distress Head: normocephalic, atraumatic Eyes: bilateral eye PERRL, bilateral eye EOMI ENT: hearing grossly normal, normal pharynx, TMs + canals normal, uvula midline Neck: full range of motion, supple, no meningismus, no bony tend Respiratory: lungs clear, normal breath sounds, no rhonchi, no respiratory distress, no retraction, no accessory muscle use Cardiovascular #1: normal peripheral pulses, regular rate, rhythm, no edema, no gallop, no JVD, no murmur Gastrointestinal: normal bowel sounds, non tender, soft, no mass, no organomegaly, non-distended, no guarding, no hernia, no pulsatile mass, no rebound Genitourinary: no CVA tenderness Musculoskeletal: normal inspection Neurologic: oriented x3, responsive, 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 as tested, motor strength/ tone normal, sensory intact Psychiatric: mood/affect normal Skin: normal color, no rash, warm/dry, palpation normal Lymphatic: normal inspection, no adenopathy Medical Decision Making Diagnostic Impression: Primary Impression: Dizziness Additional Impression: UTI (urinary tract infection) ER Course Multiple differentials including but not limited to neurological, neurosurgical infectious and electrolyte anomalies were entertained Patient did not have CT of her head on review therefore this was obtained there is some ethmoid disease patient's urine sample also shows UTI patient reports that she does get asymptomatic bladder infections Further antibiotic provided and hydration patient remains hemodynamically stable She was offered admission given the repeat presentation on several times however reports that she will follow closely with the [place] , Labs Test 08/13/18 10:00 08/13/18 10:45 White Blood Count 6.6 K/UL (4.8-10.8) Red Blood Count 5.04 M/UL (4.20-5.40) Hemoglobin 15.6 G/DL (12.0-16.0) Hematocrit 47.4 % (37.0-47.0) Mean Corpuscular Volume 94 FL (80-99) Mean Corpuscular Hemoglobin 30.9 PG (27.0-31.0) Mean Corpuscular Hemoglobin Concent 32.9 G/DL (32.0-36.0) Red Cell Distribution Width 12.5 % (11.6-14.8) Platelet Count 200 K/UL (150-450) Mean Platelet Volume 10.7 FL (6.5-10.1) Neutrophils (%) (Auto) 64.4 % (45.0-75.0) Lymphocytes (%) (Auto) 22.8 % (20.0-45.0) Monocytes (%) (Auto) 8.5 % (1.0-10.0) Eosinophils (%) (Auto) 2.8 % (0.0-3.0) Basophils (%) (Auto) 1.4 % (0.0-2.0) Urine Color Pale yellow Urine Appearance Slightly cloudy Urine pH 6 (4.5-8.0) Urine Specific [place] 1.020 (1.005-1.035) Urine Protein Negative (NEGATIVE) Urine Glucose (UA) Negative (NEGATIVE) Urine Ketones Negative (NEGATIVE) Urine Blood Negative (NEGATIVE) Urine Nitrite Positive (NEGATIVE) Urine Bilirubin Negative (NEGATIVE) Urine Urobilinogen Normal MG/DL (0.0-1.0) Urine Leukocyte Esterase 1+ (NEGATIVE) Urine RBC 0 /HPF (0 - 2) Urine WBC 10-15 /HPF (0 - 2) Urine Squamous Epithelial Cells Moderate /LPF (NONE/OCC) Urine Bacteria Many /HPF (NONE) Sodium Level 142 MMOL/L (136-145) Potassium Level 4.5 MMOL/L (3.5-5.1) Chloride Level 106 MMOL/L (98-107) Carbon Dioxide Level 29 MMOL/L (21-32) Anion Gap 7 mmol/L (5-15) Blood Urea Nitrogen 18 mg/dL (7-18) Creatinine 1.0 MG/DL (0.55-1.30) Estimat Glomerular Filtration Rate 56.5 mL/min (>60) Glucose Level 95 MG/DL (74-106) Calcium Level 9.2 MG/DL (8.5-10.1) Total Bilirubin 0.2 MG/DL (0.2-1.0) Aspartate Amino Transf (AST/SGOT) 18 U/L (15-37) Alanine Aminotransferase (ALT/SGPT) 23 U/L (12-78) Alkaline Phosphatase 88 U/L (46-116) Total Creatine Kinase 52 U/L (26-308) Creatine Kinase MB 1.2 NG/ML (0.0-3.6) Creatine Kinase MB Relative Index 2.3 Total Protein 6.8 G/DL (6.4-8.2) Albumin 3.7 G/DL (3.4-5.0) Globulin 3.1 g/dL Albumin/Globulin Ratio 1.2 (1.0-2.7) Lipase 134 U/L (73-393) Troponin I 0.017 ng/mL (0.000-0.056) EKG Diagnostic Results Rate: normal Rhythm: NSR ST Segments: no acute changes Rhythm Strip Diag. Results EP Interpretation: yes Rate: 80 Rhythm: NSR, no PVC's, no ectopy Chest X-Ray Diagnostic Results Chest X-Ray Diagnostic Results : Chest X-Ray Ordered: Yes # of Views/Limited/Complete: 1 View Indication: Chest Pain EP Interpretation: Yes Interpretation: no consolidation, no effusion, no pneumothorax Impression: No acute disease Electronically Signed by: Richie Jain DO CT/MRI/US Diagnostic Results CT/MRI/US Diagnostic Results : Impression CT headImpression: Negative. No evidence of acute intracranial bleed or mass effect Incidental finding of minimal ethmoid sinus disease. Last Vital Signs Date Time Temp Pulse Resp B/P (MAP) Pulse Ox O2 Delivery O2 Flow Rate FiO2 08/13/18 09:36 86 16 Room Air 08/13/18 09:35 98.6 101/67 99 Status: improved Disposition: HOME, SELF-CARE Condition: Improved Scripts Cephalexin* (KEFLEX*) 500 Mg Capsule 500 MG ORAL EVERY 6 HOURS for 7 Days, CAP Prov: Richie Jain DO 08/13/18 Referrals: NON PHYSICIAN (PCP) Additional Instructions: Patient is provided with the discharge instructions notified to follow up with primary doctor in the next 2-3 days otherwise return to the er with any worsening symptoms. Please note that this report is being documented using [employer] technology. This can lead to erroneous entry secondary to incorrect interpretation by the dictating instrument. Richie Jain DO Aug 13, 2018 11:32
[2018-08-13] MEDS ORDERED: CEPHALEXIN500 MG ORAL (11:51)
--- NOTE | 2018-08-13 12:00 | NUR ---
ER DISCHARGE NOTE: Patient is cleared to be discharged per ERMD, pt is aox4, on room air, with stable vital signs. pt was given dc and prescription instructions, pt was able to verbalize understanding, pt id band and iv site removed without complications. pt is able to ambulate with steady gait. pt took all belongings.
[2018-08-13 12:12] VITALS: BP 101/67
== END 2018-08-13 12:00 | disposition home or self-care (01) ==
LOC: EDBD 09:22 → EMR 10:35
DX: R42 Dizziness and giddiness (principal); N39.0 Urinary tract infection, site not specified; Z88.2 Allergy status to sulfonamides; Z88.8 Allergy status to other drugs, medicaments and biological substances; I10 Essential (primary) hypertension
CPT/HCPCS: 36415; 70450; 71045; 80053; 81003; 82550; 82553; 83690; 84484; 85025; 87086; 87181; 93005; 96365; 99284; J0696